=== PATIENT | male | born 1945 | race Caucasian/White ===

== ENCOUNTER 2024-11-06 10:32 | Emergency (ER) | payer OTHER ==
--- OUTSIDE RECORDS SUMMARY | 2024-11-06 10:38 | XMS REPORT | Continuity of Care Document ---
Author Name Unknown Address [address] [facility] [place] [address] [facility] Address [address] [facility] [address] [place] [address] Care Team Providers Care Continuity Writer Name Role Phone Muna Obrien MD Primary Care Physician [phone] MUNA OBRIEN Attending Clinician Unavailable MUNA OBRIEN Attending Clinician Unavailable Muna Obrien MD Attending Clinician [phone] Lab, Segun Ferraro Attending Clinician Unavailable Lavonne Turpin LVN Attending Clinician UnavailDonna Vincent Attending Clinician [phone] NurseSegun Attending Clinician Unavailable Donna Mora Attending Clinician [phone] DONNA BAKER Attending Clinician Unavailable Lab, Segun Ferraro Attending Clinician Unavailable Doctor Unassigned, [place] Attending Clinician U SANDOVAL Burrell Attending Clinician Unavailable Sandoval Umana MD Attending Clinician [phone], [facility] Attending Clinician Unavailable [email or web address] Attending Clinician Unavaila ble Perlita Jarvis DO Attending Clinician [phone] PERLITA JARVIS Attending Clinician Unavailable HALLE VALLE Attending Clinician Unavailable Halle Valle DO Attending Clinician [phone] LEEANN ROWAN Attending Clinician Unavailable De La Garza, Wili Attending Clinician [phone] [phone], Patient Does Not Have A Attending Clinician Lab, Adc Fam Pob I Attending Clinician UnavailDaija Davey Attending Clinician [phone] DAIJA RAYO Attending Clinician Unavailable MUNA OBRIEN Admitting Clinician Unavailable [email or web address] Admitting Clinician UnavailHALLE López Admitting Clinician Unavailable Payers Payer Name Policy Type Policy Number Effective Date Expirati on Date Source [facility] [employer] [place] [id number] 00:00:00 [facility] (MEDICAID REPLACEMENT HMO) [id number] [facility] (MEDICARE REPLACEMENT HMO) [id number] Problems Condition Name Condition Details Condition Category Status Onset Date Resolution Date Last Treatment Date Treating Clinician Comments Source Encounter to establish care Encounter to establish care Disease Active 05-07 00:00: 00 [facility] Mixed hyperlipid emia Mixed hyperlipid emia Disease Active - 00:00: 00 [facility] Encounter to establish care Encounter to establish care Disease Active - 00:00: 00 [facility] Bilateral carotid artery stenosis Bilateral carotid artery stenosis Disease Active 2021-03-15 00:00: 00 [facility] PAF (paroxysma l atrial fibrillati on) PAF (paroxysma l atrial fibrillati on) Disease Active 2021-03 0-24 00:00: 00 [facility] Primary hypertensi on Primary hypertensi on Disease Active 2021-03 0-24 00:00: 00 [facility] Dizziness and giddiness Dizziness and giddiness Disease Active 2021-03 0-24 00:00: 00 [facility] Hyperlipid emia Hyperlipid emia Problem Active 08-16 00:00: 00 [facility] Gout Gout Problem Active 08-16 00:00: 00 [facility] Hypertensi ve disorder Hypertensi ve Disorder Problem Active 08-16 00:00: 00 [facility] No known active problems No known active problems Disease [facility] Allergies, Adverse Reactions, Alerts Allergy Name Allergy Type Status Severity Reaction(s) Onset Date Inactive Date Treating Clinician Comments Source CODEINE DRUG INGREDI Active Med Hallucinates 07-11 00:00: 00 [facility] Codeine Propensi ty to adverse reaction s to drug Active Other - See comments 07-11 00:00: 00 "Feels high" [facility] PENICILL INS Drug Class Active High Anaphylaxis 0 06-26 00:00: 00 [facility] Penicill ins Propensi ty to adverse reaction s Active Anaphylaxis 0 06-26 00:00: 00 [facility] Penicill ins Propensi ty to adverse reaction s Active Anaphylaxis 0 06-26 00:00: 00 [facility] Penicill ins Drug Allergy Active Anaphylaxis 0 17 00:00: 00 [facility] Penicill ins Drug Allergy Active Anaphylaxis 0 06-26 00:00: 00 [facility] Penicill ins Drug Allergy Active Anaphylaxis 0 17 00:00: 00 [facility] PENICILL INS Allergy to substanc e Active [facility] Social History Social Habit Start Date Stop Date Quantity Comments Source Gender identity [facility] Sexual orientation U [facility] History of tobacco use Cigarette Smoker [facility] Alcoholic beverage intake 2024-06-16 00:00:00 2024-06-16 00:00:00 Current drinker of alcohol (finding) [facility] History of Social function 2024-02-12 00:00:00 2024-02-12 00:00:00 [facility] Tobacco use and exposure 2024-02-12 00:00:00 2024-02-12 00:00:00 Smokeless tobacco non-user [facility] Tobacco Comment 2024-02-12 00:00:00 2024-02-12 00:00:00 Smoked 1 ppd for 6 years- quit x50 years ago [facility] Alcohol Comment 2024-02-12 00:00:00 2024-02-12 00:00:00 Occasionally [facility] Exposure to SARS-CoV-2 (event) 2022-02-13 00:00:00 2022-02-23 12:53:00 Not sure [facility] Sex assigned at 1945 00:00:00 1945 00:00:00 [facility] Smoking Status Start Date Stop Date Source Never Smoker [facility] Tobacco smoking consumption unknown [facility] Ex-smoker 2024-02-12 00:00:00 2024-02-12 00:00:00 [facility] Medications Ordered Medication Name Filled Medication Name Start Date Stop Date Current Medication? Ordering Clinician Indication Dosage Frequency Signature (SIG) Comments Components Source metoprolol succinate XL 50 mg 24 hr tablet 10-17 00:00: 00 Yes [id number] 50mg TAKE 1 TABLET BY MOUTH IN THE MORNING [facility] atorvastati n 40 mg tablet 07-28 00:00: 00 Yes [id number] 40mg Take 1 tablet by mouth at bedtime. [facility] ezetimibe 10 mg tablet 07-28 00:00: 00 Yes [id number] 10mg Take 1 tablet by mouth in the morning. [facility] METOPROLOL SUCCINATE XL 50 mg 24 hr tablet 04-24 00:00: 00 10-17 00:00 :00 No [id number] 50mg TAKE 1 TABLET BY MOUTH IN THE MORNING [facility] ketoconazol e 2 % shampoo 2023-03 00:00: 00 Yes [id number] Apply lather to scalp and maki, let it sit for 5 minutes, then rinse off, do this 2-3x weekly for a month or until rash improves [facility] clobetasoL 0.05 % foam 2023-03 00:00: 00 Yes [id number] Apply to area(s) 2 (two) times daily. For 2 weeks [facility] citalopram 10 mg tablet 2023-03 00:00: 00 02-11 00:00 :00 No [id number] 10mg Take 1 tablet by mouth in the morning. [facility] valsartan 320 mg tablet 2023-03 00:00: 00 Yes [id number] 320mg Take 1 tablet by mouth in the morning. [facility] citalopram 10 mg tablet 12-09 00:00: 00 02-04 00:00 :00 No [id number] 10mg Take 1 tablet by mouth in the morning. [facility] valsartan-h ydrochlorot hiazide (DIOVAN HCT) 320-25 mg per tablet 11-21 09:46: 30 11-21 00:00 :00 No 1 tablet Oral Once a day [facility] simvastatin 40 mg tablet 11-21 09:45: 26 11-21 00:00 :00 No 1 tablet in the evening Oral Once a day [facility] glucosamine sulfate (GLUCOSAMIN E ORAL) 11-21 09:45: 24 Yes 1{tbl} Take 1 tablet by mouth in the morning. [facility] atenoloL 25 mg tablet 11-21 09:45: 24 06-16 00:00 :00 No 1 tablet Oral Once a day [facility] SERTraline 25 mg tablet 11-21 00:00: 00 12-09 00:00 :00 No [id number] 25mg Take 1 tablet by mouth in the morning. [facility] METOPROLOL SUCCINATE XL 50 mg 24 hr tablet 8-19 00:00: 00 04-24 21:54 :04 No [id number] 50mg TAKE 1 TABLET BY MOUTH IN THE MORNING [facility] atorvastati n 40 mg tablet 08-06 00:00: 00 06-16 00:00 :00 No [id number] 40mg Take 1 tablet by mouth at bedtime. [facility] ezetimibe 10 mg tablet 08-06 00:00: 00 06-16 00:00 :00 No [id number] 10mg Take 1 tablet by mouth in the morning. [facility] valsartan 320 mg tablet 08-06 00:00: 00 11-21 00:00 :00 No [id number] 320mg Take 1 tablet by mouth in the morning. [facility] metoprolol succinate XL 50 mg 24 hr tablet 2- 15:21: 39 05-07 00:00 :00 No 50mg Take 1 tablet by mouth in the morning. [facility] allopurinoL 300 mg tablet 2-26 15:16: 37 05-07 00:00 :00 No 300mg Take 300 mg by mouth in the morning. [facility] metoprolol succinate XL 50 mg 24 hr tablet 05-07 00:00: 00 10-28 00:00 :00 No [id number] 50mg Take 1 tablet by mouth in the morning. [facility] valsartan 320 mg tablet 2 00:00: 00 08-06 00:00 :00 No [id number] 320mg Take 1 tablet by mouth in the morning. [facility] atorvastati n 80 mg tablet 17 00:00: 00 08-06 00:00 :00 No [id number] 80mg Take 1 tablet by mouth in the morning. [facility] ezetimibe 10 mg tablet -17 00:00: 00 08-06 00:00 :00 No [id number] 10mg Take 1 tablet by mouth in the morning. [facility] atorvastati n 40 mg tablet 8-14 00:00: 00 10-26 00:00 :00 No [id number] 40mg Take 1 tablet by mouth in the morning. [facility] valsartan 320 mg tablet 0 8-11 00:00: 00 05-07 00:00 :00 No [id number] 320mg Take 1 tablet by mouth in the morning. [facility] valsartan 320 mg tablet 6-26 00:00: 00 Yes [id number] 320mg Take 1 tablet by mouth in the morning. [facility] metoprolol succinate XL 50 mg 24 hr tablet 08-24 09:05: 31 Yes 50mg Take 1 tablet by mouth in the morning. [facility] metoprolol succinate XL 50 mg 24 hr tablet 2021-03 13:26: 15 Yes 50mg Take 50 mg by mouth in the morning. [facility] amLODIPine 2.5 mg tablet 2021-03 13:57: 46 01-24 00:00 :00 No 2.5mg Take 2.5 mg by mouth in the morning. [facility] simvastatin 40 mg tablet 2021-03 13:57: 11 01-24 00:00 :00 No 40mg Take 40 mg by mouth every morning. [facility] atorvastati n 40 mg tablet 2021-03 00:00: 00 10-23 00:00 :00 No [id number] 40mg Take 1 tablet by mouth in the morning. [facility] amLODIPine 5 mg tablet 2021-03 00:00: 00 08-24 00:00 :00 No [id number] 5mg Take 1 tablet by mouth in the morning. [facility] valsartan-h ydrochlorot hiazide 320-25 mg per tablet 2021-03 11:15: 29 01-02 00:00 :00 No 1{tbl} Take 1 tablet by mouth in the morning. [facility] allopurinoL 300 mg tablet 2021-03 10:51: 22 Yes 300mg Take 300 mg by mouth in the morning. [facility] amLODIPine 2.5 mg tablet 2021-03 10:51: 22 Yes 2.5mg Take 2.5 mg by mouth in the morning. [facility] metoprolol succinate XL 50 mg 24 hr tablet 2021-03 10:51: 22 Yes 50mg Take 50 mg by mouth in the morning. [facility] simvastatin 40 mg tablet 2021-03 10:51: 22 Yes 40mg Take 40 mg by mouth every morning. [facility] valsartan 320 mg tablet 2022-1 0-24 00:00: 00 09-04 00:00 :00 No [id number] 320mg Take 1 tablet by mouth in the morning. [facility] cloNIDine (CATAPRES) tablet 0.1 mg 2021-03 0 16:15: 00 12-16 16:07 :00 No .1mg 0.1 mg, Oral, ONCE, 1 dose, On Sun12/16/21 at 1115, STAT [facility] NaCl 0.9% (NS) bolus infusion 1,000 mL 2021-03 0 16:15: 00 12-16 18:30 :00 No 1000mL at 999 mL/hr, 1,000 mL, IV Infusion, ONCE, 1 dose, On Sun12/16/21 at 1115, STAT [facility] acetaminoph en-codeine (TYLENOL-CO DEINE #3) 300-30 mg tablet 06-26 00:00: 00 05-07 00:00 :00 No 1{tbl} Take 1 tablet by mouth every 4 (four) hours as needed for Pain (scale 7-10). [facility] ibuprofen 800 mg tablet ibuprofen 800 mg tablet No ibuprofen 800 mg tablet [facility] Medical ID NOW COVID-19 Test Kit TEST DIRECTED TODAY ID NOW COVID-19 Test Kit TEST DIRECTED TODAY No ID NOW COVID-19 Test Kit TEST DIRECTED TODAY [facility] metoprolol succinate ER 100 mg tablet,exte nded release 24 hr TAKE 1 TABLET BY MOUTH EVERY DAY metoprolol succinate ER 100 mg tablet,exte nded release 24 hr TAKE 1 TABLET BY MOUTH EVERY DAY No metoprolol succinate ER 100 mg tablet,ext ended release 24 hr TAKE 1 TABLET BY MOUTH EVERY DAY [facility] metoprolol succinate ER 50 mg tablet,exte nded release 24 hr Take 1 tablet every day by oral route for 30 days. metoprolol succinate ER 50 mg tablet,exte nded release 24 hr Take 1 tablet every day by oral route for 30 days. No 1 Q1D metoprolol succinate ER 50 mg tablet,ext ended release 24 hr Take 1 tablet every day by oral route for 30 days. [facility] naproxen 500 mg tablet TAKE 1 TABLET BY MOUTH TWICE DAILY WITH MEALS NEEDED FOR ARTHRITIS naproxen 500 mg tablet TAKE 1 TABLET BY MOUTH TWICE DAILY WITH MEALS NEEDED FOR ARTHRITIS No naproxen 500 mg tablet TAKE 1 TABLET BY MOUTH TWICE DAILY WITH MEALS NEEDED FOR ARTHRITIS [facility] olmesartan 40 mg-hydrochl orothiazide 25 mg tablet Take 1 tablet every day by oral route in the morning for 90 days. olmesartan 40 mg-hydrochl orothiazide 25 mg tablet Take 1 tablet every day by oral route in the morning for 90 days. No 1 Q1D olmesartan 40 mg-hydroch lorothiazi de 25 mg tablet Take 1 tablet every day by oral route in the morning for 90 days. [facility] Immunizations Ordered Immunization Name Filled Immunization Name Date Status Comments Source Influenza, adjuvanted, trivalent, PF (FLUAD) 2024-02-12 00:00:00 Completed [facility] Influenza Virus Vaccine,quad Im,preserve Free 65+ 2022-01-24 00:00:00 Completed [facility] Influenza Virus Vaccine,quad Im,preserve Free 65+ 2022-01-24 00:00:00 Completed [facility] Influenza Virus Vaccine,quad Im,preserve Free 65+ 2022-01-24 00:00:00 Completed [facility] Influenza Virus Vaccine,quad Im,preserve Free 65+ 2022-01-24 00:00:00 Completed [facility] Influenza Virus Vaccine,quad Im,preserve Free 65+ 2022-01-24 00:00:00 Completed [facility] Influenza Virus Vaccine,quad Im,preserve Free 65+ 2022-01-24 00:00:00 Completed [facility] Influenza Virus Vaccine,quad Im,preserve Free 65+ 2022-01-24 00:00:00 Completed [facility] Influenza Virus Vaccine,quad Im,preserve Free 65+ 2022-01-24 00:00:00 Completed [facility] Influenza Virus Vaccine,quad Im,preserve Free 65+ (FLUAD) 2022-01-24 00:00:00 Completed [facility] Influenza Virus Vaccine,quad Im,preserve Free 65+ (FLUAD) 2022-01-24 00:00:00 Completed [facility] SARS-COV-2 COVID-19 PFIZER VACCINE 2020-04-30 00:00:00 Completed SARS-COV-2 COVID-19 PFIZER VACCINE 2020-04-30 00:00:00 Completed SARS-COV-2 COVID-19 PFIZER VACCINE 2020-04-08 00:00:00 Completed SARS-COV-2 COVID-19 PFIZER VACCINE 2020-04-08 00:00:00 Completed Influenza Virus Vaccine,quad Im,preserve Free 65+ (FLUAD) Unknown Completed [facility] Influenza Virus Vaccine,quad Im,preserve Free 65+ (FLUAD) Unknown Completed [facility] Influenza Virus Vaccine,quad Im,preserve Free 65+ (FLUAD) Unknown Completed [facility] Influenza Virus Vaccine,quad Im,preserve Free 65+ (FLUAD) Unknown Completed [facility] Influenza Virus Vaccine,quad Im,preserve Free 65+ (FLUAD) Unknown Completed [facility] Influenza Virus Vaccine,quad Im,preserve Free 65+ (FLUAD) Unknown Completed [facility] Influenza Virus Vaccine,quad Im,preserve Free 65+ (FLUAD) Unknown Completed [facility] Influenza Virus Vaccine,quad Im,preserve Free 65+ (FLUAD) Unknown Completed [facility] Influenza Virus Vaccine,quad Im,preserve Free 65+ (FLUAD) Unknown Completed [facility] SARS-COV-2 COVID-19 PFIZER VACCINE Unknown Completed [facility] Influenza Virus Vaccine,quad Im,preserve Free 65+ (FLUAD) Unknown Completed [facility] SARS-COV-2 COVID-19 PFIZER VACCINE Unknown Completed [facility] Influenza Virus Vaccine,quad Im,preserve Free 65+ (FLUAD) Unknown Completed [facility] SARS-COV-2 COVID-19 PFIZER VACCINE Unknown Completed [facility] Influenza Virus Vaccine,quad Im,preserve Free 65+ (FLUAD) Unknown Completed [facility] SARS-COV-2 COVID-19 PFIZER VACCINE Unknown Completed [facility] Vital Signs Vital Name Observation Time Observation Value Comments S ource Systolic blood pressure 2024-06-16 15:29:00 194 mm[Hg] [facility] Diastolic blood pressure 2024-06-16 15:29:00 97 mm[Hg] [facility] Heart rate 2024-06-16 14:45:00 58 /min [facility] Body temperature 2024-06-16 14:45:00 36.5 Ammy [facility] Body height 2024-06-16 14:45:00 175.3 cm [facility] Body weight 2024-06-16 14:45:00 71.668 kg [facility] BMI 2024-06-16 14:45:00 23.33 kg/m2 [facility] Oxygen saturation in Arterial blood by Pulse oximetry 2024-06-16 14:45:00 100 /min [facility] Systolic blood pressure 2024-02-12 14:09:00 188 mm[Hg] [facility] Diastolic blood pressure 2024-02-12 14:09:00 82 mm[Hg] [facility] Heart rate 2024-02-12 14:00:00 74 /min [facility] Respiratory rate 2024-02-12 14:00:00 18 /min [facility] Body height 2024-02-12 14:00:00 175.3 cm [facility] Body weight 2024-02-12 14:00:00 67.994 kg [facility] BMI 2024-02-12 14:00:00 22.14 kg/m2 [facility] Oxygen saturation in Arterial blood by Pulse oximetry 2024-02-12 14:00:00 98 /min [facility] Systolic blood pressure 2023-11-22 14:43:00 154 mm[Hg] [facility] Diastolic blood pressure 2023-11-22 14:43:00 73 mm[Hg] [facility] Heart rate 2023-11-22 14:29:00 60 /min [facility] Respiratory rate 2023-11-22 14:29:00 18 /min [facility] Body height 2023-11-22 14:29:00 175.3 cm [facility] Body weight 2023-11-22 14:29:00 69.446 kg [facility] BMI 2023-11-22 14:29:00 22.61 kg/m2 [facility] Oxygen saturation in Arterial blood by Pulse oximetry 2023-11-22 14:29:00 97 /min [facility] Systolic blood pressure 2023-08-07 18:41:00 138 mm[Hg] [facility] Diastolic blood pressure 2023-08-07 18:41:00 70 mm[Hg] [facility] Heart rate 2023-08-07 18:40:00 71 /min [facility] Body temperature 2023-08-07 18:40:00 36.72 Ammy [facility] Respiratory rate 2023-08-07 18:40:00 18 /min [facility] Body height 2023-08-07 18:40:00 172.7 cm [facility] Body weight 2023-08-07 18:40:00 70.308 kg [facility] BMI 2023-08-07 18:40:00 23.57 kg/m2 [facility] Oxygen saturation in Arterial blood by Pulse oximetry 2023-08-07 18:40:00 98 /min [facility] Systolic blood pressure 2023-05-07 20:58:00 138 mm[Hg] [facility] Diastolic blood pressure 2023-05-07 20:58:00 71 mm[Hg] [facility] Heart rate 2023-05-07 20:58:00 69 /min [facility] Body temperature 2023-05-07 20:58:00 36.83 Ammy [facility] Respiratory rate 2023-05-07 20:58:00 18 /min [facility] Body height 2023-05-07 20:58:00 175.3 cm [facility] Body weight 2023-05-07 20:58:00 71.532 kg [facility] BMI 2023-05-07 20:58:00 23.29 kg/m2 [facility] Oxygen saturation in Arterial blood by Pulse oximetry 2023-05-07 20:58:00 98 /min [facility] Systolic blood pressure 2022-08-24 14:09:00 140 mm[Hg] [facility] Diastolic blood pressure 2022-08-24 14:09:00 85 mm[Hg] [facility] Heart rate 2022-08-24 14:09:00 76 /min [facility] Oxygen saturation in Arterial blood by Pulse oximetry 2022-08-24 14:09:00 99 /min [facility] Body temperature 2022-08-24 14:07:00 36.5 Ammy [facility] Respiratory rate 2022-08-24 14:07:00 17 /min [facility] Body height 2022-08-24 14:07:00 175.3 cm [facility] Body weight 2022-08-24 14:07:00 70.806 kg [facility] BMI 2022-08-24 14:07:00 23.05 kg/m2 [facility] Systolic blood pressure 2022-02-23 19:12:00 137 mm[Hg] [facility] Diastolic blood pressure 2022-02-23 19:12:00 75 mm[Hg] [facility] Heart rate 2022-02-23 19:12:00 76 /min [facility] Body temperature 2022-02-23 19:12:00 36.94 Ammy [facility] Respiratory rate 2022-02-23 19:12:00 16 /min [facility] Body weight 2022-02-23 19:12:00 73.086 kg [facility] BMI 2022-02-23 19:12:00 23.79 kg/m2 [facility] Oxygen saturation in Arterial blood by Pulse oximetry 2022-02-23 19:12:00 98 /min [facility] Systolic blood pressure 2022-01-24 19:44:00 171 mm[Hg] taken w pt's bp machine [facility] Diastolic blood pressure 2022-01-24 19:44:00 90 mm[Hg] taken w pt's bp machine [facility] Heart rate 2022-01-24 19:44:00 78 /min [facility] Body temperature 2022-01-24 19:43:00 37.17 Ammy [facility] Respiratory rate 2022-01-24 19:43:00 17 /min [facility] Body weight 2022-01-24 19:43:00 71.487 kg [facility] BMI 2022-01-24 19:43:00 23.27 kg/m2 [facility] Oxygen saturation in Arterial blood by Pulse oximetry 2022-01-24 19:43:00 98 /min [facility] Systolic blood pressure 2022-01-02 15:57:00 156 mm[Hg] [facility] Diastolic blood pressure 2022-01-02 15:57:00 63 mm[Hg] [facility] Heart rate 2022-01-02 15:57:00 47 /min [facility] Respiratory rate 2022-01-02 15:57:00 18 /min [facility] Oxygen saturation in Arterial blood by Pulse oximetry 2022-01-02 15:57:00 98 /min [facility] Body temperature 2022-01-02 15:54:00 36.39 Ammy [facility] Body height 2022-01-02 15:54:00 175.3 cm [facility] Body weight 2022-01-02 15:54:00 70.943 kg [facility] BMI 2022-01-02 15:54:00 23.10 kg/m2 [facility] Systolic blood pressure 2021-12-16 19:00:00 139 mm[Hg] [facility] Diastolic blood pressure 2021-12-16 19:00:00 87 mm[Hg] [facility] Heart rate 2021-12-16 19:00:00 65 /min [facility] Respiratory rate 2021-12-16 19:00:00 15 /min [facility] Oxygen saturation in Arterial blood by Pulse oximetry 2021-12-16 19:00:00 95 /min [facility] Body temperature 2021-12-16 15:53:00 36.44 Ammy [facility] Body height 2021-12-16 15:53:00 175.3 cm [facility] Body weight 2021-12-16 15:53:00 71.215 kg [facility] BMI 2021-12-16 15:53:00 23.18 kg/m2 [facility] BP Diastolic 2021-08-16 00:00:00 76 mm[Hg] [facility] Height 2021-08-16 00:00:00 68 [in_i] [facility] BMI (Body Mass Index) 2021-08-16 00:00:00 24.5 kg/m2 [facility] BP Systolic 2021-08-16 00:00:00 176 mm[Hg] [facility] Body Weight 2021-08-16 00:00:00 2576 [oz_av] [facility] Medical Procedures Procedure Date / Time Performed Performing Clinician Source FLU VACC(),65+YR,0.5 ML,IM,ADJUVANTED,TIV(FLUAD) 2024-02-12 15:00:32 Doctor Unassigned, [place] [facility] CT HEAD WO CONTRAST 2023-12-04 14:18:10 Eri Obrien [facility] ASSIGNMENT OF BENEFITS 2023-05-07 20:43:24 Docto r Unassigned, [place] [facility] PATIENT FINANCIAL POLICY 2022-08-24 13:59:49 Doctor Unassigned, [place] [facility] FLU VACC(),65+YR,0.5 ML,IM,ADJUVANTED,QUAD(FLUAD ) 2022-01-24 19:51:19 Sandoval Umana [facility] CONSENT/REFUSAL FOR DIAGNOSIS AND TREATMENT 2022-01-02 15:30:45 Doctor Unassigned, [place] [facility] URINALYSIS 2021-12-16 17:21:00 [facility] XR CHEST 1 VW 2021-12-16 16:12:12 Raymond [facility] TROPONIN I 2021-12-16 16:03:00 [facility]alle [facility] COMP. METABOLIC PANEL ([id number]) 2021-12-16 16:03:00 Singer Halle [facility] CBC WITH DIFF 2021-12-16 16:03:00 [facility] CONSENT/REFUSAL FOR DIAGNOSIS AND TREATMENT 2021-12-16 15:46:21 Doctor Unassigned, [place] [facility] electrocardiogram 2021-08-16 00:00:00 Nina via Medical Carotid Endarterectomy [facility] T[facility]surgery [facility] Plan of Care Planned Activity Planned Date Details Comments Source Diagnostic Test Pending 2021-08-16 00:00:00 CBC w/ auto diff [code = CBC w/ auto diff] [facility] Diagnostic Test Pending 2021-08-16 00:00:00 CMP, serum or plasma [code = CMP, serum or plasma] [facility] Diagnostic Test Pending 2021-08-16 00:00:00 lipi d panel, serum [code = lipid panel, serum] [facility] Diagnostic Test Pending 2021-08-16 00:00:00 uric acid, serum or plasma [code = uric acid, serum or plasma] [facility] Encounters Start Date/Time End Date/Time Encounter Type Admission Type Attending [facility] Care Department Encounter ID Source 2024-10-16 00:00:00 2024-10-17 15:47:34 [facility] MED[facility] OFF[facility] BUILDING 1..840.114 350.1.13.10 4.2.7.2.686 [id number] [id number] [facility] 2024-08-22 00:00:00 2024-08-25 16:52:09 Telephone Micah [facility] HOLLIS?[facility] MEDICAL OFFICE BUILDING 1..840.114 350.1.13.10 4.2.7.2.686 [id number] 044 [id number] [facility] 2024-07-24 00:00:00 2024-07-25 12:59:29 Refill Micah [facility] HOLLIS?[facility] MEDICAL OFFICE BUILDING 1..840.114 350.1.13.10 4.2.7.2.686 [id number] 044 [id number] [facility] 2024-06-20 00:00:00 2024-06-20 14:50:47 Telephone Micah [facility] HOLLIS?[facility] MEDICAL OFFICE BUILDING 1..840.114 350.1.13.10 4.2.7.2.686 [id number] 044 [id number] [facility] 2024-06-16 10:45:00 2024-06-16 11:00:00 Floor Renovator Visit Lab, Muna Peralta, Segun Ferraro [facility] HOLLIS?[facility] MEDICAL OFFICE BUILDING 1.840.114 350.1.13.10 4.2.7.2.686 [id number] [facility] 2024-06-16 10:45:00 2024-06-16 10:45:00 Outpatient R MUNA OBRIEN [facility] [id number] [facility] 2024-06-16 09:40:00 2024-06-16 10:37:11 Office Visit Muna Obrien [facility] HOLLIS?[facility] MEDICAL OFFICE BUILDING 1.2840.114 350.1.13.10 4.2.7.2.686 [id number] 044 [id number] [facility] 2023-11-19 00:00:00 2024-04-26 07:00:34 Orders Only Lavonne Turpin, Lavonne [facility] [place]LLIS?[facility] MEDICAL OFFICE BUILDING 1.20.114 350.1.13.10 4.2.7.2.686 [id number] [facility] 2024-04-19 00:00:00 2024-04-24 15:54:06 [facility] BUILDING 1.2840.114 350.1.13.10 4.2.7.2.686 [id number] [id number] [facility] 2024-02-14 00:00:00 2024-02-14 10:26:37 Letter (Out) [facility] (TONIE) 1.20.114 350.1.13.10 4.2.7.2.686 [id number] [facility] 2024-02-12 09:40:00 2024-02-12 10:00:00 Imm/Inj Visit Nurse, Muna Johnson Nurse, Segun Ferraro [facility] HOLLIS?[facility] MEDICAL OFFICE BUILDING 1.2840.114 350.1.13.10 4.2.7.2.686 [id number] 044 [id number] [facility] 2024-02-12 09:40:00 2024-02-12 09:40:00 Outpatient R HAO OBRIENINE MICAH [facility] [id number] [facility] 2024-02-12 08:20:00 2024-02-12 08:40:05 Office Visit Micah [facility] MEDICAL OFFICE BUILDING 1.2.840.114 350.1.13.10 4.2.7.2.686 [id number] [id number] [facility] 2024-02-05 00:00:00 2024-02-05 13:03:28 [facility] MEDICAL OFF[facility] BUILDING 1.2.840.114 350.1.13.10 4.2.7.2.686 [id number] 044 [id number] [facility] 2024-01-11 00:00:00 2024-01-11 11:48:36 Letter (Out) [facility] (TONIE) 1.2.840.114 350.1.13.10 4.2.7.2.686 [id number] [id number] [facility] 2024-01-09 00:00:00 2024-01-09 11:59:10 [facility]phone [facility] MEDICAL OFFICE BUILDING 1.2.840.114 350.1.13.10 4.2.7.2.686 [id number] 044 [id number] [facility] 2023-12-07 00:00:00 2023-12-10 13:20:39 Telephone [facility] MEDICAL OFFICE BUILDING 1.2.840.114 350.1.13.10 4.2.7.2.686 [id number] [facility] 2023-12-04 08:57:36 2023-12-04 23:59:00 Outpatient R MUNA OBRIEN [facility] [id number] [facility] 2023-12-04 08:57:36 2023-12-04 23:59:00 Hospital Encounter Muna Obrien [facility] 1.2840.114 350.1.13.10 4.2.7.2.686 [id number] [facility] 2023-11-23 00:00:00 2023-11-23 10:35:55 Telephone Micah M[facility] MEDICAL OFFICE BUILDING 1.84.114 350.1.13.10 4.2.7.2.686 [id number] 044 [id number] [facility] 2023-11-22 10:45:00 2023-11-22 10:45:00 Floor Renovator Visit Lab, Segun - Muna Hayes Lab, Ang - Ronan [facility] MEDICAL OFFICE BUILDING 1.84.114 350.1.13.10 4.2.7.2.686 [id number] [facility] 2023-11-22 09:40:00 2023-11-22 10:31:14 Outpatient R MUNA OBRIEN [facility] [id number] [facility] 2023-11-22 09:40:00 2023-11-22 10:31:14 Office Visit Micah [facility] MEDICAL OFFICE BUILDING 1.284.114 350.1.13.10 4.2.7.2.686 [id number] [facility] 2023-10-28 00:00:00 2023-10-29 14:41:26 Refill Donna Baker [facility] MEDICAL OFFICE BUILDING 1.2840.114 350.1.13.10 4.2.7.2.686 [id number] [facility] 2023-09-20 09:00:00 2023-09-20 09:00:00 Outpatient R [facility] [id number] [facility] 2023-09-17 00:00:00 2023-09-17 10:25:43 Letter (Out) [facility] 1.2.840.114 350.1.13.10 4.2.7.2.686 [id number] [facility] 2023-08-29 00:00:00 2023-08-30 11:10:25 Telephone [facility] MEDICAL OFFICE BUILDING 1.2.840.114 350.1.13.10 4.2.7.2.686 [id number] 044 [id number] [facility] 2023-08-07 13:40:00 2023-08-07 14:08:00 Office Visit [facility]ALEJAGriselda [facility] MEDICAL OFF[facility] BUILDING 1.2.840.114 350.1.13.10 4.2.7.2.686 [id number] 044 [id number] [facility] 2023-08-07 13:40:00 2023-08-07 14:08:00 Outpatient R MUNA OBRIEN [facility] [id number] [facility] 2023-05-15 00:00:00 2023-05-15 00:00:00 Telephone [facility] MED[facility] OFF[facility] BUILD[facility] 1.2.840.114 350.1.13.10 4.2.7.2.686 [id number] [facility] 2023-05-14 10:00:00 2023-05-14 11:06:14 Outpatient R DONNA BAKER [facility] [id number] [facility] 2023-05-14 10:00:00 2023-05-14 10:15:00 Floor Renovator Visit Lab, Donna Koenig [facility] 1.840.114 350.1.13.10 4.2.7.2.686 [id number] [facility] 2023-05-07 15:00:00 2023-05-07 15:23:22 Outpatient R DONNA BAKER [facility] [id number] [facility] 2023-05-07 15:00:00 2023-05-07 15:23:22 Office Visit Donna Baker [facility] HOLLIS?BI[facility]CA [facility] MEDICAL OFF[facility] BUILDING 1.840.114 350.1.13.10 4.2.7.2.686 [id number] [id number] [facility] 2023-05-07 00:00:00 2023-05-07 00:00:00 Orders Only Doctor Unassigned, [place] [facility] 1.84.114 350.1.13.10 4.2.7.2.686 [id number] [facility] 2022-10-26 00:00:00 2022-10-26 00:00:00 [facility] 1.840.114 350.1.13.10 4.2.7.2.686 [id number] [facility] 2022-10-24 08:15:00 2022-10-24 08:35:01 [facility] [id number] [facility] 2022-10-24 08:15:00 2022-10-24 08:30:00 Floor Renovator Visit 2, Adc [facility] 1.840.114 350.1.13.10 4.2.7.2.686 [id number] [facility] 2022-10-20 00:00:00 2022-10-20 00:00:00 [facility] 1.2.840.114 350.1.13.10 4.2.7.2.686 [id number] [facility] 2022-09-04 00:00:00 2022-09-04 00:00:00 [facility] 1.2.840.114 350.1.13.10 4.2.7.2.686 [id number] [facility] 2022-08-24 09:20:00 2022-08-24 09:28:55 [facility] 1.2.840.114 350.1.13.10 4.2.7.2.686 [id number] [facility] 2022-08-24 09:20:00 2022-08-24 09:20:00 Outpatient [facility] [id number] [facility] 2022-08-24 00:00:00 2022-08-24 00:00:00 Orders Only Doctor Unassigned, [place] [facility] 1.2.840.114 350.1.13.10 4.2.7.2.686 [id number] [facility] 2022-02-23 13:00:00 2022-02-23 13:35:08 Outpatient [facility] [id number] [facility] 2022-02-23 13:00:00 2022-02-23 13:35:08 [facility] 1.2.840.114 350.1.13.10 4.2.7.2.686 [id number] [facility] 2022-01-24 13:40:00 2022-01-24 14:02:58 Office [facility] Dong[facility] BU[facility] 1.840.114 350.1.13.10 4.2.7.2.686 [id number] [facility] 2022-01-24 13:40:00 2022-01-24 14:02:58 Outpatient [facility] [id number] [facility] 2022-01-19 00:00:00 2022-01-19 00:00:00 [facility] 1.840.114 350.1.13.10 4.2.7.2.686 [id number] [facility] 2022-01-16 08:53:46 2022-01-16 23:59:00 Outpatient [facility] [id number] [facility] 2022-01-04 00:00:00 2022-01-04 00:00:00 Telephone Dong [facility] BUILDING 1.840.114 350.1.13.10 4.2.7.2.686 [id number] [facility] 2022-01-02 10:40:00 2022-01-02 11:20:56 Outpatient R [facility] [id number] [facility] 2022-01-02 10:40:00 2022-01-02 11:20:56 Office [facility] BUILDING 1.840.114 350.1.13.10 4.2.7.2.686 [id number] [facility] 2022-01-02 00:00:00 2022-01-02 00:00:00 Orders Only Doctor Unassigned, [place] [facility] 1.2840.114 350.1.13.10 4.2.7.2.686 [id number] [facility] 2021-12-29 10:00:00 2021-12-29 10:15:00 Floor Renovator Visit 2, Adc Lab Perlita Jarvis [facility] 1.840.114 350.1.13.10 4.2.7.2.686 [id number] [facility] 2021-12-29 10:00:00 2021-12-29 10:00:00 Outpatient PERLITA LIMA [facility] [id number] [facility] 2021-12-16 10:55:00 2021-12-16 14:18:00 Emergency X SINGER HALLE [facility] ERT [id number] [facility] 2021-12-16 10:55:00 2021-12-16 14:18:00 Emergency ValleHalle [facility] 1.840.114 350.1.13.10 4.2.7.2.686 [id number] [facility] 2021-10-23 19:36:00 2021-10-23 19:36:00 Emergency X LEEANN ROWAN [facility] ERT [id number] [facility] 2021-08-16 00:00:00 2021-08-16 00:00:00 Wili De La Garza, [employer] SPECIALIST: [address] [place] [address] , Ph. [facility] - GC_[id number] nzalez [facility] Office [id number] [facility] 2021-08-16 00:00:00 2021-08-16 00:00:00 Outpatient Frederic Wili [facility] [id number] 2020-01-29 00:00:00 2020-01-29 00:00:00 Telephone Pcp, Patient Does Not Have A [facility] 1.840.114 350.1.13.10 4.2.7.2.686 [id number] [facility] 2020-01-24 16:30:13 2020-01-24 16:50:13 Laboratory Only Lab, Adc Fam Pob Daija Rodriguez [facility] Office [address] 1.2.840.114 350.1.13.10 4.2.7.2.686 [id number] [facility] 2020-01-24 16:20:00 2020-01-24 16:48:36 Outpatient R DAIJA RAYO [facility] [id number] [facility] Results Test Description Test Time Test Comments Results Resul t Comments Source CT HEAD WO CONTRAST 2023-11-12 4 16:09:53 EXAM: CT HEAD WO CONTRAST HISTORY: Memory loss TECHNIQUE: Axial CT of the head was performed and reconstructed at 5 mmintervals. Coronal and sagittal reformatted images were generated. COMPARISON: None FINDINGS: The ventricles and cerebral sulci are within normal limits for patient'kimberley. No hydrocephalus. No midline shift or pathological extra-axial fluidcollection is present. The basal cisterns are unremarkable. No acute intracranial hemorrhage or significant mass effect is visualized.Periventr icular and deep white matter hypodensities, nonspecific finding,likely reflect chronic microvascular ischemic changes. Right basal gangliachronic lacunar infarcts. The marina-white matter differentiation ispreserved. The mastoid air cells and paranasal air sinuses are clear. The calvariumand central skull base are unremarkable. [facility] ([id number])2021-12-16 16:33:30* Test Item Value Reference Range Interpretation Comme nts NA (test code = 0661171785) 138 mmol/L 135-145 K (test code = 9500190794) 4.7 mmol/L 3.5-5 CL (test code = 5675707076) 98 mmol/L 98-108 CO2 TOTAL (test code = 9890983648) 26 mmol/L 23-31 AGAP (test code = 7614910360) 2-16 BUN (test code = 9149505225) 24 mg/dL 7-23 H GLUCOSE (test code = 8002081310) 110 mg/dL 70-110 CREATININE (test code = 8168540603) 1.37 mg/dL 0.6-1.25 H TOTAL BILI (test code = 4316633550) 0.8 mg/dL 0.1-1.1 CALCIUM (test code = 8426759274) 10.3 mg/dL 8.6-10.6 T PROTEIN (test code = 8563830000) 7.4 g/dL 6.3-8.2 ALBUMIN (test code = 0353828829) 4.8 g/dL 3.5-5 ALK PHOS (test code = 9290730137) 58 U/L 34-122 ALTv (test code = 1742-6) 21 U/L 5-50 AST(SGOT) (test code = 0041759190) 24 U/L 13-40 eGFR (test code = 3094791375) mL/min/1.73m2 SINAN (test code = SINAN) Association of Glomerular Filtration Rate (GFR) and Staging of Kidney Disease* + --+ --+ ------+| GFR (mL/min/1.73 m2) ?| With Kidney Damage ?| ?Without Kidney Damage+ --------+ --------+ +| ?>90 ?| ?Stage one ?| ? Normal ?+ ---+ ---+ -------+| ?60-89 ?| ?Stage two ?| ? Decreased GFR ? + --+ --+ ------+| ?30-59 ?| ?Stage three ?| ? Stage three ? + --+ --+ ------+| ?15-29 ?| ?Stage four ? | ? Stage four ?+ ---+ ---+ -------+| ?<15 (or dialysis) ? ?| ?Stage five ? | ? Stage five ?+ ---+ ---+ -------+ *Each stage assumes the associated GFR level has been in effect for at least three months. ?Stages 1 to 5, with or without kidney disease, indicate chronic kidney disease. Notes: Determination of stages one and two (with eGFR >59mL/min/1.73 m2) requires estimation of kidney damage for at least three months as defined by structural or functional abnormalities of the kidney, manifested by either:Pathological abnormalities or Markers of kidney damage (including abnormalities in the composition of the blood or urine or abnormalities in imaging tests). Lab Interpretation (test code = 45728-0) Abnormal [facility] WITH [id number] 16:16:08* Test Item Value Reference Range Interpretation Comme nts WBC (test code = 6690-2) See_Comment [Automated messa ge] The system which generated this result transmitted reference range: 4.20 - 10.70 10*3/?L. The reference range was not used to interpret this result as normal/abnormal. RBC (test code = 789-8) See_Comment [Automated messa ge] The system which generated this result transmitted reference range: 4.26 - 5.52 10*6/?L. The reference range was not used to interpret this result as normal/abnormal. HGB (test code = 718-7) 14.9 g/dL 12.2-16.4 HCT (test code = 4544-3) 42.8 % 38.4-49.3 MCV (test code = 787-2) 84.8 fL 81.7-95.6 MCH (test code = 785-6) 29.5 pg 26.1-32.7 MCHC (test code = 786-4) 34.8 g/dL 31.2-35 RDW-SD (test code = 30386-8) 38.2 fL 38.5-51.6 L RDW-CV (test code = 788-0) 12.5 % 12.1-15.4 PLT (test code = 777-3) See_Comment [Automated messa ge] The system which generated this result transmitted reference range: 150 - 328 10*3/?L. The reference range was not used to interpret this result as normal/abnormal. MPV (test code = 03454-9) 9.9 fL 9.8-13 NRBC/100 WBC (test code = 8215094480) See_Comment [Automated [employer] ssage] The system which generated this result transmitted reference range: 0.0 - 10.0 /100 WBCs. The reference range was not used to interpret this result as normal/abnormal. NRBC x10^3 (test code = 7484444848) See_Comment [Automated messa ge] The system which generated this result transmitted reference range: 10*3/?L. The reference range was not used to interpret this result as normal/abnormal. GRAN MAT (NEUT) % (test code = 770-8) 56.8 % IMM GRAN % (test code = 9670583752) 0.40 % LYMPH % (test code = 736-9) 31.3 % MONO % (test code = 5905-5) 8.8 % EOS % (test code = 713-8) 1.9 % BASO % (test code = 706-2) 0.8 % GRAN MAT x10^3(ANC) (test code = 2711591884) 4.13 10*3/uL 1.99-6.95 IMM GRAN x10^3 (test code = 8301246722) 0.03 10*3/uL 0-0.06 LYMPH x10^3 (test code = 731-0) 2.28 10*3/uL 1.09-3.23 MONO x10^3 (test code = 742-7) 0.64 10*3/uL 0.36-1.02 EOS x10^3 (test code = 711-2) 0.14 10*3/uL 0.06-0.53 BASO x10^3 (test code = 704-7) 0.06 10*3/uL 0.01-0.09 Lab Interpretation (test code = 93272-2) Abnormal [facility] Notes Date/Time Note Provider Source 2024-10-17 15:46:37 Last Refilled: METOPROLOL SUCCINATE XL 50 mg 24 hr tablet 90 tablet 1 04/24/2024 -- No Sig: TAKE 1 TABLET BY MOUTH IN THE MORNING Sent to pharmacy as: metoprolol succinate ER 50 mg tablet,extended release 24 hr (TOPROL XL) Class: eRX Route: Oral Order: [id number] Date/Time Signed: 04/24/2024 15:54 E-Prescribing Status: Receipt confirmed by pharmacy (04/24/2024 3:54 PM [facility]) Recent Visits Date Type Provider Dept 06/16/24 Office Visit Muna Obrien MD Ang[facility] 02/12/24 Office Visit Muna Obrien MD [facility] 11/22/23 Office Visit Muna Obrien MD [facility] 08/07/23 Office Visit Muna Obrien MD [facility] 05/07/23 Office Visit Donna Baker FNP [facility] Showing recent visits within past 540 days with a meds authorizing provider and meeting all other requirements Future Appointments No visits were found meeting these conditions. Showing future appointments within next 150 days with a meds authorizing provider and meeting all other requirements Darlyn Talley [facility] 2024-08-25 16:52:03 Done [facility] 2024-08-23 13:56:28 Please review, complete, and sign if appropriate. [facility] 2024-08-22 16:15:27 Tonie Love is a 79 year old male Patient is requesting a referral to: Dept: Ophthalmology Reason for referral: macular degeneration f/u External referral: Name of provider / location patient requesting: [facility] [address] [facility] Phone number: [phone] Appt already scheduled?: y If yes, date of appt.: 08.26.24 Micaela Lockett [facility] 2024-06-20 14:43:06 Notified patient of test results/recommendations per and gave verbal understanding. Hello, Urinalysis Your urinalysis is complete and within normal limits. This is an indicator of proper kidney function, and does not show an infection. Chemistry Panel Your electrolytes (sodium, potassium, calcium, glucose) are were within normal ranges. Your kidney function were within normal reference ranges. Your liver enzymes (AST and ALT) are within normal reference ranges. Alkaline phosphatase were within normal reference ranges. These are enzymes typically found in the gallbladder/liver/bone area. Other labs are acceptable. Dr. Micah Phillips Written by Muna Obrien MD on 06/18/2024 10:12 PM CDT Echo Calvo MA [facility] 2024-06-20 14:15:16 Tonie Love is a 79 year old male The patient is requesting a call with his test results. He said he got a text that they were on MyChart but he does not use MyChart. Cristina Cotton [facility] 2024-06-16 10:45:00 Images from the original note were not included. Venipuncture collection performed by clean technique on the left anticubitus. Total of 1 attempts were made. Slight pressure and a bandage/dressing were applied to the site(s). The patient experienced no complications. The following specimens were processed according to instructions and sent to [facility] laboratories per lab order on 06/16/2024 : LT BLUE SST 1 RED LAV 2 PPT DK GREEN (LiHep) DK GREEN (SodH) MARINA DK BLUE (K2) DK BLUE (S) ACD Blood Culture NIPT/NTD Patient has been identified by and name and was provided with cup, antiseptic towelette, and clean catch instructions. 1 urine specimen(s) sent. Unpreserved 1 Urine Culture Aptima tube Other urine [facility] 2024-04-24 09:43:08 Patient denied use of Atenolol and only taking Metoprolol and Valsartan at this time. SMITH [facility] 2024-04-22 17:24:30 Is he taking atenolol as well? Please clarify which betablocker he is taking. Dr. Micah Phillips [facility] 2024-04-21 14:54:23 Images from the original note were not included. Notes: 10/29/23 Last Refilled: [facility] #[id number] - [facility] [address] AT [facility] & Recent Visits Date Type Provider Dept 02/12/24 Office Visit Muna Obrien MD [facility] 11/22/23 Office Visit Muna Obrien MD [facility] 08/07/23 Office Visit Muna Obrien MD [facility] 05/07/23 Office Visit Donna Baker FNP [facility] Showing recent visits within past 540 days with a meds authorizing provider and meeting all other requirements Future Appointments Date Type Provider Dept 06/16/24 Appointment Muna Obrien MD [facility] Showing future appointments within next 150 days with a meds authorizing provider and meeting all other requirements Name from pharmacy: METOPROLOL ER SUCCINATE 50MG TABS Will file in chart as: METOPROLOL SUCCINATE XL 50 mg 24 hr tablet Sig: TAKE 1 TABLET BY MOUTH IN THE MORNING Disp: 90 tablet Refills: 1 (Pharmacy requested: Not specified) Start: 04/19/2024 Class: eRX For: Primary hypertension Last ordered: 5 months ago (10/29/2023) by KRZYSZTOF Hinkle Last refill: 01/23/2024 Rx #: [id number]|0|1 Cardiovascular: Beta Blockers Eznpoq1504/19/2024 08:26 AM Protocol Details Valid encounter within last 12 months Heart rate within normal limits and completed in the last 12 months To be filled at: [facility] #[id number] [facility], [place] - [address] AT [place] [id number] & [address] Ashley Peralta MA [facility] 2024-02-05 13:02:25 Images from the original note were not included. Notes: MUST BE SEEN FOR FURTHER REFILLS Last Refilled: Name from pharmacy: [facility] 10MG TABLETS Will file in chart as: [facility] 10 mg tablet Sig: Take 1 tablet by mouth in the morning. Original sig: TAKE 1 TABLET BY MOUTH IN THE MORNING Disp: 60 tablet Refills: 0 (Pharmacy requested: Not specified) Start: 02/05/2024 Class: eRX For: Depression, unspecified depression type Last ordered: 1 month ago (12/10/2023) by Muna Obrien MD Last refill: 12/10/2023 Rx #: [id number]|0|1 Psychiatry: Antidepressants [id number]/05/2024 08:21 AM Protocol Details Manual Review: Verify no changes in dose in the last 3 months Valid encounter within last 12 months To be filled at: [facility] #[id number] [place] [address] [facility] [address] Recent Visits Date Type Provider Dept 11/22/23 Office Visit Muna Obrien MD [facility] 08/07/23 Office Visit Muna Obrien MD [facility] 05/07/23 Office Visit Donna Baker FNP [facility] Showing recent visits within past 540 days with a meds authorizing provider and meeting all other requirements Future Appointments Date Type Provider Dept 02/12/24 Appointment Muna Obrien MD [facility] Showing future appointments within next 150 days with a meds authorizing provider and meeting all other requirements SMITH Echo Calvo MA [facility] 2024-01-09 11:53:47 Referral placed for [facility]. And faxed. P:[phone] F:[phone] [facility] 2024-01-09 11:06:20 Tonie Love is a 78 year old male is requesting assistance with finding field sales associate in [place] so that he may have an eye exam for glasses Please advise [phone] (home) T [facility] 2023-12-10 13:20:14 Patient notified of all and verbalized understanding. No further needs were voiced. [facility] 2023-12-10 12:35:53 That is a rare side effect. Stop sertraline. We can try a different medicine called citalopram. Let us know if he has any side effects. Best, Dr. Obrien T [facility] 2023-12-07 11:10:45 Please review and advise. MANUEL 11/22/23 NOV 02/12/24 [facility] 2023-12-07 10:42:05 Tonie Love is a 78 year old male Pt saw the doctor on 11/21 and was prescribed sertraline 25 mg. He said it took it for 7 days and had "bad diarrhea". He stopped it on 11/30 and took it again this morning and within 2 hours he had diarrhea again. Please call [phone]. [facility] 2023-11-23 10:34:54 Spoke with patient and informed him that the labs had not been resulted on as of yet. He would receive a call when they had. He voiced understanding. Mila Alfonso RN [facility] 2023-11-23 09:48:04 Tonie Love is a 78 year old male would like to go over his recent lab results with a nurse. Please advise. [facility] 2023-11-22 10:45:00 Images from the original note were not included. Venipuncture collection performed by clean technique on the left anticubitus. Total of 1 attempts were made. Slight pressure and a bandage/dressing were applied to the site(s). The patient experienced no complications. The following specimens were processed according to instructions and sent to [facility] laboratories per lab order on 11/22/2023 : LT BLUE SST 2 RED LAV 1 PPT DK GREEN (LiHep) DK GREEN (SodH) MARINA DK BLUE (K2) DK BLUE (S) ACD Blood Culture NIPT/NTD Patient has been identified by and name and was provided with cup, antiseptic towelette, and clean catch instructions. 1 urine specimen(s) sent. Unpreserved 1 Urine Culture Aptima tube Other urine [facility] 2023-10-29 14:40:21 Last Refilled: Disp Refills Start End SACHI metoprolol succinate XL 50 mg 24 hr tablet 90 tablet 1 05/07/2023 -- No Sig: Take 1 tablet by mouth in the morning. Sent to pharmacy as: metoprolol succinate ER 50 mg tablet,extended release 24 hr (TOPROL XL) Class: eRX Route: Oral Order: [id number] Date/Time Signed: 05/07/2023 15:21 E-Prescribing Status: Receipt confirmed by pharmacy (05/07/2023 4:36 PM [facility]) Notes: Recent Visits Date Type Provider Dept 08/07/23 Office Visit Muna Obrien MD [facility] 05/07/23 Office Visit Donna Baker FNP [facility] Showing recent visits within past 540 days with a meds authorizing provider and meeting all other requirements Future Appointments Date Type Provider Dept 11/22/23 Appointment Muna Obrien MD [facility] Showing future appointments within next 150 days with a meds authorizing provider and meeting all other requirements Floor [facility]ator Visit on 05/14/2023 Component Date Value NA 05/14/2023 141 K 05/14/2023 4.6 CL 05/14/2023 109 (H) CO2 TOTAL 05/14/2023 24 AGAP 05/14/2023 8 BUN 05/14/2023 32 (H) GLUCOSE 05/14/2023 100 CREATININE 05/14/2023 1.17 TOTAL BILI 05/14/2023 0.7 CALCIUM 05/14/2023 9.8 T PROTEIN 05/14/2023 7.0 ALBUMIN 05/14/2023 4.2 ALK PHOS 05/14/2023 67 ALTv 05/14/2023 23 AST(SGOT) 05/14/2023 31 eGFR 05/14/2023 63.4 HGB A1C 05/14/2023 5.9 (H) CHOL 05/14/2023 119 (L) HDL 05/14/2023 34 (L) HDLC RATIO 05/14/2023 3.5 TRIG 05/14/2023 74 LDL CHOL 05/14/2023 70 VLDL 05/14/2023 15 TSH 05/14/2023 2.80 Office Visit on 05/07/2023 Component Date Value WBC 05/14/2023 9.60 RBC 05/14/2023 5.09 HGB 05/14/2023 15.3 HCT 05/14/2023 46.3 MCV 05/14/2023 91.0 MCH 05/14/2023 30.1 MCHC 05/14/2023 33.0 RDW-SD 05/14/2023 41.8 RDW-CV 05/14/2023 12.9 PLT 05/14/2023 200 MPV 05/14/2023 11.9 IPF % 05/14/2023 7.3 NRBC/100 WBC 05/14/2023 0.0 NRBC x10 3 05/14/2023 <0.01 GRAN MAT (NEUT) % 05/14/2023 53.6 IMM GRAN % 05/14/2023 0.40 LYMPH % 05/14/2023 31.0 MONO % 05/14/2023 8.2 EOS % 05/14/2023 6.0 BASO % 05/14/2023 0.8 GRAN MAT x10 3 (ANC) 05/14/2023 5.13 IMM GRAN x10 3 05/14/2023 0.04 LYMPH x10 3 05/14/2023 2.98 MONO x10 3 05/14/2023 0.79 EOS x10 3 05/14/2023 0.58 (H) BASO x10 3 05/14/2023 0.08 Mila Alfonso RN [facility] 2023-08-30 11:09:54 Referral placed per provider approval . T [facility] 2023-08-29 21:57:36 I approve a referral. Dr Esvin gibbons in [facility] is good. Best, Dr. Obrien T [facility] 2023-08-29 10:25:58 Copied from [facility] #[id number]. Topic: Clinical - Referral >> Aug 29, 2023 10:23 AM Patient Performance Improvement Analyst wrote: Tonie Love is a 78 year old male Patient requesting a referral to a Primary Special Education Teacher for a skin check asking if Dr. Obrien can recommend someone to him. Please advise and call patient with an update. [phone] (home) [facility] 2023-05-16 10:56:27 Patient has been notified of test results/ recommendations per Donna Baker Gave verbal understanding [facility] 2023-05-15 15:33:48 Copied from [facility] #[id number]. Topic: Clinical - Results >> May 15, 2023 3:32 PM Patient Performance Improvement Analyst wrote: Patient called stating that he had a missed call for his results and would like a call back on those results Please advise [facility] 2023-05-14 10:00:00 Images from the original note were not included. Venipuncture collection performed by clean technique on the left anticubitus. Total of 1 attempts were made. Slight pressure and a bandage/dressing were applied to the site(s). The patient experienced no complications. The following specimens were processed according to instructions and sent to [facility] laboratories per lab order on 05/14/2023 : LT BLUE SST 1 RED LAV 1 PPT DK GREEN (LiHep) DK GREEN (SodH) MARINA DK BLUE (K2) DK BLUE (S) ACD Blood Culture NIPT/NTD [facility] 2022-10-26 08:53:48 Formatting of this n ote might be different from the original. Images from the original note were not included. Results shred with patient, verbalized understanding Sandoval Umana MD P Cardiology Nurse Labs are good for refills. Renal function has improved. Cholesterol is still suboptimal. Increase Lipitor to 80 mg daily and also add Zetia 10 mg daily. [facility] 2022-10-24 08:15:00 Formatting of this n ote is different from the original. Images from the original note were not included. Venipuncture collection performed by clean technique on the left anticubitus. Total of 1 attempts were made. Slight pressure and a bandage/dressing were applied to the site(s). The patient experienced no complications. The following specimens were processed according to instructions and sent to [facility] laboratories per lab order on 10/24/2022 : LT BLUE SST 1 RED LAV 1 PPT DK GREEN (LiHep) DK GREEN (SodH) MARINA DK BLUE (K2) DK BLUE (S) ACD Blood Culture NIPT/NTD [facility] 2022-10-23 08:58:15 Formatting of this n ote might be different from the original. Images from the original note were not included. Refill request received for atorvastatin. Patient due for labs per [facility] Cardiology Refill Guidelines. Orders were entered on 10.20.22 for lipid panel, CMP, CBC and Hepatic function. Discussed with patient that we can send 30 day supply for continuity of care but he will need to get labs for further refills. He verbalized understanding via teach back. Rx sent to: [facility] #[id number] [place] [address] [address] [facility] [address] T Olamide Naranjo RN [facility] 2022-10-20 14:01:10 Addended by: TREVER VELIZ RN on: 10/20/2022 02:01 PM Modules accepted: Orders T [facility] 2022-10-20 13:52:42 Formatting of this n ote might be different from the original. Valsartan refill sent for 90 days no refills for continuity of care. Lab orders placed, LVM on VM to call clinic with concerns MANUEL 08/24/22 Labs 12/16/21 [facility]
[2024-11-06 11:40] LABS: Absolute Lymphocytes (CBC) 1.9 K/uL (0.7-4.9); Hematocrit 46.5 % (39.6-49.0); Hemoglobin 15.7 g/dL (13.6-17.9); MCH 28.9 pg (27.0-35.0); MCHC 33.7 g/dL (32.0-36.0); MCV 85.9 fL (80-100); MPV 8.3 fL (7.6-11.3); Nucleated RBC Absolute Count 0.0 (0-0); Nucleated Red Blood Cells % 0.0 % (0-0); RBC Red Blood Cell Count 5.42 M/uL (4.33-5.43); White Blood Count 8.90 thou/uL (4.3-10.9)
[2024-11-06 11:43] LABS: Sqamous Epithelial None Seen /HPF (None Seen); Urine Culture Reflex Order NOT NEEDED; Urine Microscopic Reflex YN ORDER UMIC
[2024-11-06 11:45] LABS: PT Prothrombin Time 11.8 SECONDS (10-13.0); Protime INR 1.05
[2024-11-06 12:00] LABS: ALT/SGPT 35.0 U/L (16-61); AST/SGOT 18.0 U/L (15-37); Albumin 3.9 g/dL (3.4-5.0); Albumin/Globulin Ratio 1.1 (1.1-1.8); Alkaline Phosphatase 83.0 U/L (45-117); Anion Gap 9.8 mEq/L (5.0-15.0); BUN Blood Urea Nitrogen 19.0 mg/dL (7-18); Bilirubin Indirect, Calculated 0.5 mg/dL (0.2-0.8); Globulin 3.5 g/dL (2.3-3.5); Glucose Level 98.0 mg/dL (74-106); Magnesium 2.1 mg/dL (1.6-2.4); NT PRO-BNP 366.0 pg/mL (<450); Potassium 3.8 mEq/L (3.5-5.1); Troponin High Sensitivity 7.6 pg/mL (<58.9)
--- NOTE | 2024-11-06 12:17 | RAD REPORT ---
EXAMINATION: ONE VIEW CHEST XR CLINICAL INDICATION: Male, 79 years old.,COUGH TECHNIQUE: Frontal chest projection is submitted. Examination is limited by patient positioning and t echnique. COMPARISON: No prior exam. FINDINGS: The lungs are well inflated and clear. No pneumothorax or sizable effusion. The heart is normal in s ize. Mediastinal contours are unremarkable. IMPRESSION: No acute intrathoracic abnormalities.
--- NOTE | 2024-11-06 12:30 | ER ---
Nurse's Notes [facility] Name: Abraham Patel Age: 79 yrs Sex: Male : 1945 Arrival Date: 11/06/2024 Time: 10:32 Bed 24 Private MD: Diagnosis: Essential (primary) hypertension Presentation: 11/06 11:12 Chief complaint: Patient states: took bp at home this morning and it was 200s/100s, me1 took his Valsartan 320mg and in an hour bp was still high. took another 1/2 dose of valsartan and waited. BP went up to 228/108 so patient came to ER. Denies LAWSON and chest pain. Coronavirus screen: Vaccine status: Patient reports receiving the 2nd dose of the covid vaccine. Ebola Screen: No symptoms or risks identified at this time. Initial Sepsis Screen: Does the patient meet any 2 criteria? No. Patient's initial sepsis screen is negative. Does the patient have a suspected source of infection? No. Patient's initial sepsis screen is negative. Risk Assessment: Do you want to hurt yourself or someone else? Patient reports no desire to harm self or others. Onset of symptoms was November 06, 2024 at 06:00. 11:12 Method Of Arrival: Ambulatory [facility] 11:12 Acuity: BYRON 4 me1 Historical: - Allergies: 11:14 PENICILLINS; me1 - PMHx: 11:14 Hypertensive disorder; Hypercholesterolemia; me1 - PSHx: 11:14 Appendectomy; Tonsillectomy; Operative procedure on knee; me1 - Immunization history:: Adult Immunizations up to date. - Infectious Disease History:: Denies. - Social history:: Smoking status: Patient denies any tobacco usage or history of. Screenin:40 [facility] ED Fall Risk Assessment (Adult) History of falling in the last 3 months, jb4 including since admission No falls in past 3 months (0 pts) Confusion or Disorientation No (0 pts) Intoxicated or Sedated No (0 pts) Impaired Gait No (0 pts) Mobility Assist Device Used No (0 pt) Altered Elimination No (0 pt) Score/Fall Risk Level 0 - 2 = Low Risk Oriented to surroundings, Maintained a safe environment. Abuse screen: Denies threats or abuse. Nutritional screening: No deficits noted. Tuberculosis screening: No symptoms or risk factors identified. Assessment: 12:49 General: Appears in no apparent distress. comfortable, Behavior is calm, cooperative, jb4 appropriate for age. Pain: Denies pain. Neuro: Level of Consciousness is awake, alert, obeys commands, Oriented to person, place, time, situation. Cardiovascular: Patient's skin is warm and dry. Rhythm is sinus rhythm. Respiratory: Airway is patent Respiratory effort is even, unlabored, Respiratory pattern is regular, symmetrical. Derm: Skin is intact, Skin is pink, warm \T\ dry. Musculoskeletal: Circulation, motion, and sensation intact. Range of motion: intact in all extremities. Vital Signs: 11:12 BP 186 / 94; Pulse 80; Resp 18; Temp 98.4; Pulse Ox 98% ; Weight 65.77 kg; Height 5 ft. me1 9 in. ; Pain 0/10; 12:40 BP 176 / 84; Pulse 65; Resp 16; Pulse Ox 98% on R/A; jb4 11:12 Body Mass Index 21.41 (65.77 kg, 175.26 cm) or1 11:12 Pain Scale: Adult [facility] ED Course: 10:36 Patient arrived in ED. mr 10:38 Lucas Perez MD is Attending Physician. nereida 11:14 Triage completed. or1 11:14 Arm band placed on Patient placed in waiting room. or1 11:28 XRAY Chest (1 view) In Process Unspecified. EDMS 11:31 UA Rfx [place] Cult if indicated Sent. bc6 11:32 Basic Metabolic Panel Sent. bc6 11:32 CBC with Diff Sent. bc6 11:32 LFT's Sent. bc6 11:32 Magnesium Sent. bc6 11:32 NT PRO-BNP Sent. bc6 11:32 PT-INR Sent. bc6 11:32 Troponin HS Sent. bc6 11:32 Initial lab(s) drawn, by or, sent to lab. Urine collected: clean catch specimen, clear. bc6 Inserted saline lock: 20 gauge in right antecubital area, using aseptic technique. Blood collected. Flushed with 10 mL NS. 12:29 Sal Cody, LORETO is Primary Nurse. jb4 12:29 Jeffrey Grajeda MD is Referral Physician. nereida 12:40 Patient has correct armband on for positive identification. Bed in low position. Call jb4 light in reach. Side rails up X 1. Provided Education on: discharge instructions.. 12:40 No provider procedures requiring assistance completed. IV discontinued, intact, jb4 bleeding controlled, No redness/swelling at site. Pressure dressing applied. Administered Medications: 12:30 Not Given (Physician Discretion): ns 0.9% 500 ml 500 ml IV at 1 bolus once; to be given jb4 as a bolus over 30 minutes 12:40 Drug: Norvasc PO 10 mg PO once Route: PO; jb4 12:49 Follow up: Response: Medication administered at discharge. jb4 Medication: 12:49 VIS not applicable for this client. jb4 Outcome: 12:30 Discharge ordered by . nereida 12:52 Discharged to home ambulatory, jb4 12:52 Condition: stable 12:52 Discharge instructions given to patient, Instructed on discharge instructions, follow up and referral plans. medication usage, Demonstrated understanding of instructions, follow-up care, medications, Prescriptions given X 1, 12:52 Patient left the ED. jb4 Signatures: Dispatcher [employer] EDMS Lucas Perez MD MD cha Rivera, Mary, Reg Reg Sal Guerra, RN RN jb4 Kami Bauer 6 Myra Nicole, RN RN me1
--- NOTE | 2024-11-06 12:30 | EDPHYS ---
Physician Documentation [facility] Name: Abraham Patel Age: 79 yrs Sex: Male : 1945 Arrival Date: 11/06/2024 Time: 10:32 Bed 24 Private MD: ED Physician Lucas Perez HPI: 11/06 12:23 This 79 yrs old Male presents to ER via Ambulatory with complaints of High nereida Blood Pressure. 12:23 The patient has elevated blood pressure and discovered this at home, with a home nereida device. Onset: The symptoms/episode began/occurred today, yesterday. Modifying factors: The symptoms are aggravated by activity, The symptoms are alleviated by remaining still. Associated signs and symptoms: The patient has no apparent associated signs or symptoms. Severity of symptoms: At its worst the blood pressure was mild, moderate, in the emergency department the blood pressure is unchanged. Historical: - Allergies: 11:14 PENICILLINS; me1 - PMHx: 11:14 Hypertensive disorder; Hypercholesterolemia; me1 - PSHx: 11:14 Appendectomy; Tonsillectomy; Operative procedure on knee; me1 - Immunization history:: Adult Immunizations up to date. - Infectious Disease History:: Denies. - Social history:: Smoking status: Patient denies any tobacco usage or history of. ROS: 12:24 Constitutional: Negative for fever, chills, and weight loss, Eyes: Negative for injury, nereida pain, redness, and discharge, ENT: Negative for injury, pain, and discharge, Neck: Negative for injury, pain, and swelling, Cardiovascular: Negative for chest pain, palpitations, and edema, Respiratory: Negative for shortness of breath, cough, wheezing, and pleuritic chest pain, Abdomen/GI: Negative for abdominal pain, nausea, vomiting, diarrhea, and constipation, Back: Negative for injury and pain, : Negative for injury, bleeding, discharge, and swelling, MS/Extremity: Negative for injury and deformity, Skin: Negative for injury, rash, and discoloration, Neuro: Negative for headache, weakness, numbness, tingling, and seizure, Psych: Negative for depression, anxiety, suicide ideation, homicidal ideation, and hallucinations, Allergy/Immunology: Negative for hives, rash, and allergies, Endocrine: Negative for neck swelling, polydipsia, polyuria, polyphagia, and marked weight changes, Hematologic/Lymphatic: Negative for swollen nodes, abnormal bleeding, and unusual bruising, 12:24 MS/extremity: Negative for acute changes, Exam: 12:24 Constitutional: This is a well developed, well nourished patient who is awake, alert, nereida and in no acute distress. Head/Face: Normocephalic, atraumatic. Eyes: Pupils equal round and reactive to light, extra-ocular motions intact. Lids and lashes normal. Conjunctiva and sclera are non-icteric and not injected. Cornea within normal limits. Periorbital areas with no swelling, redness, or edema. ENT: Nares patent. No nasal discharge, no septal abnormalities noted. Tympanic membranes are normal and external auditory canals are clear. Oropharynx with no redness, swelling, or masses, exudates, or evidence of obstruction, uvula midline. Mucous membranes moist. Neck: Trachea midline, no thyromegaly or masses palpated, and no cervical lymphadenopathy. Supple, full range of motion without nuchal rigidity, or vertebral point tenderness. No Meningismus. Chest/axilla: Normal chest wall appearance and motion. Nontender with no deformity. No lesions are appreciated. Cardiovascular: Regular rate and rhythm with a normal S1 and S2. No gallops, murmurs, or rubs. Normal PMI, no JVD. No pulse deficits. Respiratory: Lungs have equal breath sounds bilaterally, clear to auscultation and percussion. No rales, rhonchi or wheezes noted. No increased work of breathing, no retractions or nasal flaring. Abdomen/GI: Soft, non-tender, with normal bowel sounds. No distension or tympany. No guarding or rebound. No evidence of tenderness throughout. Back: No spinal tenderness. No costovertebral tenderness. Full range of motion. Male : Normal genitalia with no discharge or lesions. Skin: Warm, dry with normal turgor. Normal color with no rashes, no lesions, and no evidence of cellulitis. MS/ Extremity: Pulses equal, no cyanosis. Neurovascular intact. Full, normal range of motion., bilateral aka Neuro: Awake and alert, GCS 15, oriented to person, place, time, and situation. Cranial nerves II-XII grossly intact. Motor strength 5/5 in all extremities. Sensory grossly intact. Cerebellar exam normal. Normal gait. Psych: Awake, alert, with orientation to person, place and time. Behavior, mood, and affect are within normal limits. 12:24 ECG was reviewed by the Attending Physician. 12:24 Musculoskeletal/extremity: ROM: no acute changes, intact in all extremities, full active range of motion, full passive range of motion, Circulation is intact in all extremities. Sensation intact. Compartment Syndrome exam of affected extremity: is normal. no pain, no numbness, no tingling, no sensation deficit, no palor, no weak pulses, DVT Exam: No signs of deep vein thrombosis. no pain, no swelling, no tenderness, negative Homans' sign noted on exam, no appreciated bluish discoloration, no erythema, no increased warmth, 12:28 ECG was reviewed by the Attending Physician. [facility] Vital Signs: 11:12 BP 186 / 94; Pulse 80; Resp 18; Temp 98.4; Pulse Ox 98% ; Weight 65.77 kg; Height 5 ft. me1 9 in. ; Pain 0/10; 12:40 BP 176 / 84; Pulse 65; Resp 16; Pulse Ox 98% on R/A; jb4 11:12 Body Mass Index 21.41 (65.77 kg, 175.26 cm) me1 11:12 Pain Scale: Adult me1 MDM: 11:36 Medical Screening Exam initiated [facility] 12:26 Differential diagnosis: hypertensive crisis, Malignant HTN. Data reviewed: vital signs, [facility] nurses notes, lab test result(s), EKG, radiologic studies, CT scan, plain films. Consideration of Admission/Observation Escalation of care including admission/observation considered. I considered the following discharge prescriptions or medication management in the emergency department Medications were administered in the Emergency Department. See MAR. Independent interpretation of the following test(s) in the Emergency Department EKG: See my EKG interpretation above. Test considered but Not performed: Ultrasound NO 2 D ECHO. Historians other than the Patient: Spouse/Significant Other: WELL INFORMED. Care significantly affected by the following chronic conditions: Hypertension. Counseling: I had a detailed discussion with the patient and/or guardian regarding the historical points, exam findings, and any diagnostic results supporting the discharge/admit diagnosis, lab results, radiology results, the need for outpatient follow up, for definitive care, a chemical production technician, a family practitioner. 11/06 10:39 Order name: Basic Metabolic Panel; Complete Time: 12:20 [facility] 11/06 10:39 Order name: CBC with Diff; Complete Time: 12:20 [facility] 11/06 10:39 Order name: LFT's; Complete Time: 12:20 [facility] 11/06 10:39 Order name: Magnesium; Complete Time: 12:20 [facility] 11/06 10:39 Order name: NT PRO-BNP; Complete Time: 12:20 [facility] 11/06 10:39 Order name: PT-INR; Complete Time: 12:20 [facility] 11/06 10:39 Order name: Troponin HS; Complete Time: 12:20 [facility] 11/06 10:39 Order name: UA Rfx [place] Cult if indicated; Complete Time: 12:20 [facility] 11/06 10:39 Order name: XRAY Chest (1 view); Complete Time: 12:20 [facility] 11/06 10:39 Order name: Cardiac monitoring; Complete Time: 12:49 [facility] 11/06 10:39 Order name: EKG - Nurse/Tech; Complete Time: 12:49 [facility] 11/06 10:39 Order name: IV Saline Lock; Complete Time: 11:31 [facility] 11/06 10:39 Order name: Labs collected and sent; Complete Time: 11:32 [facility] 11/06 10:39 Order name: O2 Per Protocol; Complete Time: 12:29 [facility] 11/06 10:39 Order name: O2 Sat Monitoring; Complete Time: 12:29 [facility] EC:28 Rate is 80 beats/min. Rhythm is regular. QRS [place] is Normal. TN interval is normal. QRS nereida interval is normal. QT interval is normal. No Q waves. T waves are Normal. No ST changes noted. Clinical impression: NSR w/ Non-specific ST/T Changes and No evidence of ischemia. Interpreted by me. Reviewed by me. Administered Medications: 12:30 Not Given (Physician Discretion): ns 0.9% 500 ml 500 ml IV at 1 bolus once; to be given jb4 as a bolus over 30 minutes 12:40 Drug: Norvasc PO 10 mg PO once Route: PO; jb4 12:49 Follow up: Response: Medication administered at discharge. jb4 Disposition Summary: 11/06/24 12:30 Discharge Ordered Notes: Location: Home nereida Problem: new nereida Symptoms: have improved nereida Condition: Stable nereida Diagnosis - Essential (primary) hypertension nereida Followup: nereida - With: Private Physician - When: 2 - 3 days - Reason: Recheck today's complaints, Continuance of care, Re-evaluation by your physician Followup: nereida - With: Jeffrey Grajeda MD - When: 2 - 3 days - Reason: Recheck today's complaints, Re-evaluation by your physician Discharge Instructions: - Discharge Summary Sheet nereida - Hypertension, Adult nereida - Hypertension, Adult, [id number]-[id number] nereida - How to Take Your Blood Pressure, [id number] nereida - Aspirin and Your Heart nereida - Managing Your Hypertension nereida Forms: - Medication Reconciliation Form nereida - Antibiotic Education nereida - Prescription Opioid Use nereida - Patient Portal Instructions nereida - Leadership Thank You Letter [facility] Prescriptions: - Norvasc 5 mg Oral Tablet - take 1 tablet ORAL route once daily; 20 tablet; Refills: 0, Product Selection nereida Permitted Signatures: Dispatcher [employer] EDLucas Mares MD MD cha Bryson, James, RN RN jb4 Myra Nicole RN RN me1 Corrections: (The following items were deleted from the chart) 10:40 10:40 BASIC METABOLIC PANEL+C.LAB.BRZ ordered. EDMS EDMS 10:40 10:40 CBC+H.LAB.BRZ ordered. EDMS EDMS 10:40 10:40 HEPATIC FUNCTION+C.LAB.BRZ ordered. EDMS EDMS 10:40 10:40 MAGNESIUM+C.LAB.BRZ ordered. EDMS EDMS 10:40 10:40 PROBNP+C.LAB.BRZ ordered. EDMS EDMS 10:40 10:40 PROTIME (+INR)+COAG.LAB.BRZ ordered. EDMS EDMS 10:40 10:40 Troponin High Sensitivity+C.LAB.BRZ ordered. EDMS EDMS 10:40 10:40 UA Rfx [place] Cult if indicated+U.LAB.BRZ ordered. EDMS EDMS 10:40 10:40 Chest Single View+RAD.RAD.BRZ ordered. EDMS EDMS
[2024-11-06] MEDS ORDERED: AMLODIPINE 10 MG TAB ONE (12:31)
[2024-11-06 19:58] VITALS: BP 176/84; O2SAT 98
== END 2024-11-06 12:52 | disposition home or self-care (01) ==
LOC: ER 10:32
DX: I10 Essential (primary) hypertension (principal)
CPT/HCPCS: 36415; 71045; 80048; 80076; 81001; 83735; 83880; 84484; 85025; 85610; 93005; 99284

== ENCOUNTER 2024-12-10 15:48 | Emergency (ER) | payer OTHER ==
--- OUTSIDE RECORDS SUMMARY | 2024-12-10 15:52 | XMS REPORT | Continuity of Care Document ---
Author Name Unknown Address [address] [facility]. [address] [place] [address] [facility] Address [address] [facility] [place] [address] Care Team Providers Care Arbitrator Name Role Phone Muna Obrien MD Primary Care Physician [phone] MUNA OBRIEN Attending Clinician Unavailable MUNA OBRIEN Attending Clinician Unavailable Muna Obrien MD Attending Clinician [phone] Lab, Segun Ferraro Attending Clinician Unavailable Lavonne Turpin LVN Attending Clinician UnavailDonna Vincent Attending Clinician [phone] Segun Jovel Attending Clinician Unavailable Donna Mora Attending Clinician [phone] DONNA BAKER Attending Clinician Unavailable Lab, Segun Ferraro Attending Clinician Unavailable Doctor Unassigned, Hunker Attending Clinician U navailable SANDOVAL UMANA Attending Clinician Unavailable Sandoval Umana MD Attending Clinician [phone], [facility] Attending Clinician Unavailable [email or web address] Attending Clinician Unavaila ble Perlita Jarvis DO Attending Clinician [phone] PERLITA JARVIS Attending Clinician Unavailable HALLE VALLE Attending Clinician Unavailable Halle Valle DO Attending Clinician [phone] LEEANN ROWAN Attending Clinician Unavailable Wili De La Garza Attending Clinician [phone] [phone], Patient Does Not Have A Attending Clinician Lab, Adc Fam Pob I Attending Clinician UnavailDaija Davey Attending Clinician [phone] DAIJA RAYO Attending Clinician Unavailable MUNA OBRIEN Admitting Clinician Unavailable [email or web address] Admitting Clinician Unavaila HALLE Metz Admitting Clinician Unavailable Payers Payer Name Policy Type Policy Number Effective Date Expirati on Date Source [facility] [id number] 00:00:00 [facility] (MEDICAID REPLACEMENT HMO) [id number] [facility] - [facility] (MEDICARE REPLACEMENT HMO) [id number] Problems Condition Name Condition Details Condition Category Status Onset Date Resolution Date Last Treatment Date Treating Clinician Comments Source Encounter to establish care Encounter to establish care Disease Active 05-07 00:00: 00 [facility] Mixed hyperlipid emia Mixed hyperlipid emia Disease Active - 00:00: 00 [facility] Encounter to establish care Encounter to establish care Disease Active - 00:00: 00 [facility] Bilateral carotid artery stenosis Bilateral carotid artery stenosis Disease Active 2021-03-15 00:00: 00 [facility] PAF (paroxysma l atrial fibrillati on) PAF (paroxysma l atrial fibrillati on) Disease Active 2021-03 0- 00:00: 00 [facility] Primary hypertensi on Primary hypertensi on Disease Active 2021-03 0-24 00:00: 00 [facility] Dizziness and giddiness Dizziness and giddiness Disease Active 2021-03 0-24 00:00: 00 [facility] Hyperlipid emia Hyperlipid emia Problem Active 08-16 00:00: 00 [facility] Gout Gout Problem Active 08-16 00:00: 00 [facility] Hypertensi ve disorder Hypertensi ve Disorder Problem Active 08-16 00:00: 00 [facility] No known active problems No known active problems Disease [facility] Allergies, Adverse Reactions, Alerts Allergy Name Allergy Type Status Severity Reaction(s) Onset Date Inactive Date Treating Clinician Comments Source CODEINE DRUG INGREDI Active Med Hallucinates 07-11 00:00: 00 [facility] Codeine Propensi ty to adverse reaction s to drug Active Other - See comments 07-11 00:00: 00 "Feels high" [facility] PENICILL INS Drug Class Active High Anaphylaxis 06-26 00:00: 00 [facility] Penicill ins Propensi ty to adverse reaction s Active Anaphylaxis 06-26 00:00: 00 [facility] Penicill ins Propensi ty to adverse reaction s Active Anaphylaxis 06-26 00:00: 00 [facility] Penicill ins Drug Allergy Active Anaphylaxis 0 06-26 00:00: 00 [facility] Penicill ins Drug Allergy Active Anaphylaxis 0 06-26 00:00: 00 [facility] Penicill ins Drug Allergy Active Anaphylaxis 0 06-26 00:00: 00 [facility] PENICILL INS Allergy to substanc e Active [facility] Social History Social Habit Start Date Stop Date Quantity Comments Source Gender identity [facility] Sexual orientation [facility] History of tobacco use Cigarette Smoker [facility] Alcoholic beverage intake 2024-06-16 00:00:00 2024-06-16 00:00:00 Current drinker of alcohol (finding) [facility] History of Social function 2024-02-12 00:00:00 2024-02-12 00:00:00 [facility] Tobacco use and exposure 2024-02-12 00:00:00 2024-02-12 00:00:00 Smokeless tobacco non-user [facility] Tobacco Comment 2024-02-12 00:00:00 2024-02-12 00:00:00 Smoked 1 ppd for 6 years- quit x50 years ago [facility] Alcohol Comment 2024-02-12 00:00:00 2024-02-12 00:00:00 Occasionally [facility] Exposure to SARS-CoV-2 (event) 2022-02-13 00:00:00 2022-02-23 12:53:00 Not sure [facility] Sex assigned at 1945 00:00:00 1945 00:00:00 [facility] Smoking Status Start Date Stop Date Source Never Smoker [facility] Tobacco smoking consumption unknown [facility] Ex-smoker 2024-02-12 00:00:00 2024-02-12 00:00:00 [facility] Medications Ordered Medication Name Filled Medication Name Start Date Stop Date Current Medication? Ordering Clinician Indication Dosage Frequency Signature (SIG) Comments Components Source metoprolol succinate XL 50 mg 24 hr tablet 10-17 00:00: 00 Yes [id number] 50mg TAKE 1 TABLET BY MOUTH IN THE MORNING [facility] atorvastati n 40 mg tablet 07-28 00:00: 00 Yes [id number] 40mg Take 1 tablet by mouth at bedtime. [facility] ezetimibe 10 mg tablet 07-28 00:00: 00 Yes [id number] 10mg Take 1 tablet by mouth in the morning. [facility] METOPROLOL SUCCINATE XL 50 mg 24 hr tablet 04-24 00:00: 00 10-17 00:00 :00 No [id number] 50mg TAKE 1 TABLET BY MOUTH IN THE MORNING [facility] ketoconazol e 2 % shampoo 2023-03 00:00: 00 Yes [id number] Apply lather to scalp and maki, let it sit for 5 minutes, then rinse off, do this 2-3x weekly for a month or until rash improves [facility] clobetasoL 0.05 % foam 2023-03 00:00: 00 Yes [id number] Apply to area(s) 2 (two) times daily. For 2 weeks [facility] citalopram 10 mg tablet 2023-03 00:00: 00 02-11 00:00 :00 No [id number] 10mg Take 1 tablet by mouth in the morning. [facility] valsartan 320 mg tablet 2023-03 0 00:00: 00 Yes [id number] 320mg Take 1 tablet by mouth in the morning. [facility] citalopram 10 mg tablet 12-09 00:00: 00 02-04 00:00 :00 No [id number] 10mg Take 1 tablet by mouth in the morning. [facility] valsartan-h ydrochlorot hiazide (DIOVAN HCT) 320-25 mg per tablet 11-21 09:46: 30 11-21 00:00 :00 No 1 tablet Oral Once a day [facility] simvastatin 40 mg tablet 11-21 09:45: 26 11-21 00:00 :00 No 1 tablet in the evening Oral Once a day [facility] glucosamine sulfate (GLUCOSAMIN E ORAL) 11-21 09:45: 24 Yes 1{tbl} Take 1 tablet by mouth in the morning. [facility] atenoloL 25 mg tablet 11-21 09:45: 24 06-16 00:00 :00 No 1 tablet Oral Once a day [facility] SERTraline 25 mg tablet 11-21 00:00: 00 12-09 00:00 :00 No [id number] 25mg Take 1 tablet by mouth in the morning. [facility] METOPROLOL SUCCINATE XL 50 mg 24 hr tablet 19 00:00: 00 04-24 21:54 :04 No [id number] 50mg TAKE 1 TABLET BY MOUTH IN THE MORNING [facility] atorvastati n 40 mg tablet 08-06 00:00: 00 06-16 00:00 :00 No [id number] 40mg Take 1 tablet by mouth at bedtime. [facility] ezetimibe 10 mg tablet 08-06 00:00: 00 06-16 00:00 :00 No [id number] 10mg Take 1 tablet by mouth in the morning. [facility] valsartan 320 mg tablet 08-06 00:00: 00 11-21 00:00 :00 No [id number] 320mg Take 1 tablet by mouth in the morning. [facility] metoprolol succinate XL 50 mg 24 hr tablet 2-26 15:21: 39 05-07 00:00 :00 No 50mg Take 1 tablet by mouth in the morning. [facility] allopurinoL 300 mg tablet 2-26 15:16: 37 05-07 00:00 :00 No 300mg Take 300 mg by mouth in the morning. [facility] metoprolol succinate XL 50 mg 24 hr tablet 2- 00:00: 00 10-28 00:00 :00 No [id number] 50mg Take 1 tablet by mouth in the morning. [facility] valsartan 320 mg tablet 2 00:00: 00 08-06 00:00 :00 No [id number] 320mg Take 1 tablet by mouth in the morning. [facility] atorvastati n 80 mg tablet 0 8-17 00:00: 00 08-06 00:00 :00 No [id number] 80mg Take 1 tablet by mouth in the morning. [facility] ezetimibe 10 mg tablet 0 8-17 00:00: 00 08-06 00:00 :00 No [id number] 10mg Take 1 tablet by mouth in the morning. [facility] atorvastati n 40 mg tablet 0 8-14 00:00: 00 10-26 00:00 :00 No [id number] 40mg Take 1 tablet by mouth in the morning. [facility] valsartan 320 mg tablet 2022-0 8-11 00:00: 00 05-07 00:00 :00 No [id number] 320mg Take 1 tablet by mouth in the morning. [facility] valsartan 320 mg tablet 2022-0 6-26 00:00: 00 Yes [id number] 320mg Take 1 tablet by mouth in the morning. [facility] metoprolol succinate XL 50 mg 24 hr tablet 08-24 09:05: 31 Yes 50mg Take 1 tablet by mouth in the morning. [facility] metoprolol succinate XL 50 mg 24 hr tablet 2021-03 13:26: 15 Yes 50mg Take 50 mg by mouth in the morning. [facility] amLODIPine 2.5 mg tablet 2021-03 13:57: 46 01-24 00:00 :00 No 2.5mg Take 2.5 mg by mouth in the morning. [facility] simvastatin 40 mg tablet 2021-03 13:57: 11 01-24 00:00 :00 No 40mg Take 40 mg by mouth every morning. [facility] atorvastati n 40 mg tablet 2021-03 00:00: 00 10-23 00:00 :00 No [id number] 40mg Take 1 tablet by mouth in the morning. [facility] amLODIPine 5 mg tablet 2021-03 00:00: 00 08-24 00:00 :00 No [id number] 5mg Take 1 tablet by mouth in the morning. [facility] valsartan-h ydrochlorot hiazide 320-25 mg per tablet 2021-03 11:15: 29 01-02 00:00 :00 No 1{tbl} Take 1 tablet by mouth in the morning. [facility] allopurinoL 300 mg tablet 2021-03 10:51: 22 Yes 300mg Take 300 mg by mouth in the morning. [facility] amLODIPine 2.5 mg tablet 2021-03 10:51: 22 Yes 2.5mg Take 2.5 mg by mouth in the morning. [facility] metoprolol succinate XL 50 mg 24 hr tablet 2021-03 10:51: 22 Yes 50mg Take 50 mg by mouth in the morning. [facility] simvastatin 40 mg tablet 2021-0324 10:51: 22 Yes 40mg Take 40 mg by mouth every morning. [facility] valsartan 320 mg tablet 2021-03 024 00:00: 00 09-04 00:00 :00 No [id number] 320mg Take 1 tablet by mouth in the morning. [facility] cloNIDine (CATAPRES) tablet 0.1 mg 2021-03 0 16:15: 00 12-16 16:07 :00 No .1mg 0.1 mg, Oral, ONCE, 1 dose, On Sun12/16/21 at 1115, STAT [facility] NaCl 0.9% (NS) bolus infusion 1,000 mL 2021-03 0 16:15: 00 12-16 18:30 :00 No 1000mL at 999 mL/hr, 1,000 mL, IV Infusion, ONCE, 1 dose, On Sun12/16/21 at 1115, STAT [facility] acetaminoph en-codeine (TYLENOL-CO DEINE #3) 300-30 mg tablet 17 00:00: 00 05-07 00:00 :00 No 1{tbl} Take 1 tablet by mouth every 4 (four) hours as needed for Pain (scale 7-10). [facility] ibuprofen 800 mg tablet ibuprofen 800 mg tablet No ibuprofen 800 mg tablet [facility] Medical ID NOW COVID-19 Test Kit TEST DIRECTED TODAY ID NOW COVID-19 Test Kit TEST DIRECTED TODAY No ID NOW COVID-19 Test Kit TEST DIRECTED TODAY [facility] metoprolol succinate ER 100 mg tablet,exte nded release 24 hr TAKE 1 TABLET BY MOUTH EVERY DAY metoprolol succinate ER 100 mg tablet,exte nded release 24 hr TAKE 1 TABLET BY MOUTH EVERY DAY No metoprolol succinate ER 100 mg tablet,ext ended release 24 hr TAKE 1 TABLET BY MOUTH EVERY DAY [facility] metoprolol succinate ER 50 mg tablet,exte [...] day by oral route for 30 days. [facility] naproxen 500 mg tablet TAKE 1 TABLET BY MOUTH TWICE DAILY WITH MEALS NEEDED FOR ARTHRITIS naproxen 500 mg tablet TAKE 1 TABLET BY MOUTH TWICE DAILY WITH MEALS NEEDED FOR ARTHRITIS No naproxen 500 mg tablet TAKE 1 TABLET BY MOUTH TWICE DAILY WITH MEALS NEEDED FOR ARTHRITIS [facility] olmesartan 40 mg-hydrochl orothiazide 25 mg tablet [...] route in the morning for 90 days. [facility] Immunizations Ordered Immunization Name Filled Immunization Name Date Status Comments Source Influenza, adjuvanted, trivalent, PF (FLUAD) 2024-02-12 00:00:00 Completed [facility] Influenza Virus Vaccine,quad Im,preserve Free 65+ 2022-01-24 00:00:00 Completed [facility] Influenza Virus Vaccine,quad Im,preserve Free 65+ 2022-01-24 00:00:00 Completed [facility] Influenza Virus Vaccine,quad Im,preserve Free 65+ 2022-01-24 00:00:00 Completed [facility] Influenza Virus Vaccine,quad Im,preserve Free 65+ 2022-01-24 00:00:00 Completed [facility] Influenza Virus Vaccine,quad Im,preserve Free 65+ 2022-01-24 00:00:00 Completed [facility] Influenza Virus Vaccine,quad Im,preserve Free 65+ 2022-01-24 00:00:00 Completed [facility] Influenza Virus Vaccine,quad Im,preserve Free 65+ 2022-01-24 00:00:00 Completed [facility] Influenza Virus Vaccine,quad Im,preserve Free 65+ 2022-01-24 00:00:00 Completed [facility] Influenza Virus Vaccine,quad Im,preserve Free 65+ (FLUAD) 2022-01-24 00:00:00 Completed [facility] Influenza Virus Vaccine,quad Im,preserve Free 65+ (FLUAD) 2022-01-24 00:00:00 Completed [facility] SARS-COV-2 COVID-19 PFIZER VACCINE 2020-04-30 00:00:00 Completed SARS-COV-2 COVID-19 PFIZER VACCINE 2020-04-30 00:00:00 Completed SARS-COV-2 COVID-19 PFIZER VACCINE 2020-04-08 00:00:00 Completed SARS-COV-2 COVID-19 PFIZER VACCINE 2020-04-08 00:00:00 Completed Influenza Virus Vaccine,quad Im,preserve Free 65+ (FLUAD) Unknown Completed [facility] Influenza Virus Vaccine,quad Im,preserve Free 65+ (FLUAD) Unknown Completed [facility] Influenza Virus Vaccine,quad Im,preserve Free 65+ (FLUAD) Unknown Completed [facility] Influenza Virus Vaccine,quad Im,preserve Free 65+ (FLUAD) Unknown Completed [facility] Influenza Virus Vaccine,quad Im,preserve Free 65+ (FLUAD) Unknown Completed [facility] Influenza Virus Vaccine,quad Im,preserve Free 65+ (FLUAD) Unknown Completed [facility] Influenza Virus Vaccine,quad Im,preserve Free 65+ (FLUAD) Unknown Completed [facility] Influenza Virus Vaccine,quad Im,preserve Free 65+ (FLUAD) Unknown Completed [facility] Influenza Virus Vaccine,quad Im,preserve Free 65+ (FLUAD) Unknown Completed [facility] SARS-COV-2 COVID-19 PFIZER VACCINE Unknown Completed [facility] Influenza Virus Vaccine,quad Im,preserve Free 65+ (FLUAD) Unknown Completed [facility] SARS-COV-2 COVID-19 PFIZER VACCINE Unknown Completed [facility] Influenza Virus Vaccine,quad Im,preserve Free 65+ (FLUAD) Unknown Completed [facility] SARS-COV-2 COVID-19 PFIZER VACCINE Unknown Completed [facility] Influenza Virus Vaccine,quad Im,preserve Free 65+ (FLUAD) Unknown Completed [facility] SARS-COV-2 COVID-19 PFIZER VACCINE Unknown Completed [facility] Vital Signs Vital Name Observation Time Observation Value Comments S ource Systolic blood pressure 2024-06-16 15:29:00 194 mm[Hg] [facility] Diastolic blood pressure 2024-06-16 15:29:00 97 mm[Hg] [facility] Heart rate 2024-06-16 14:45:00 58 /min [facility] Body temperature 2024-06-16 14:45:00 36.5 Ammy [facility] Body height 2024-06-16 14:45:00 175.3 cm [facility] Body weight 2024-06-16 14:45:00 71.668 kg [facility] BMI 2024-06-16 14:45:00 23.33 kg/m2 [facility] Oxygen saturation in Arterial blood by Pulse oximetry 2024-06-16 14:45:00 100 /min [facility] Systolic blood pressure 2024-02-12 14:09:00 188 mm[Hg] [facility] Diastolic blood pressure 2024-02-12 14:09:00 82 mm[Hg] [facility] Heart rate 2024-02-12 14:00:00 74 /min [facility] Respiratory rate 2024-02-12 14:00:00 18 /min [facility] Body height 2024-02-12 14:00:00 175.3 cm [facility] Body weight 2024-02-12 14:00:00 67.994 kg [facility] BMI 2024-02-12 14:00:00 22.14 kg/m2 [facility] Oxygen saturation in Arterial blood by Pulse oximetry 2024-02-12 14:00:00 98 /min [facility] Systolic blood pressure 2023-11-22 14:43:00 154 mm[Hg] [facility] Diastolic blood pressure 2023-11-22 14:43:00 73 mm[Hg] [facility] Heart rate 2023-11-22 14:29:00 60 /min [facility] Respiratory rate 2023-11-22 14:29:00 18 /min [facility] Body height 2023-11-22 14:29:00 175.3 cm [facility] Body weight 2023-11-22 14:29:00 69.446 kg [facility] BMI 2023-11-22 14:29:00 22.61 kg/m2 [facility] Oxygen saturation in Arterial blood by Pulse oximetry 2023-11-22 14:29:00 97 /min [facility] Systolic blood pressure 2023-08-07 18:41:00 138 mm[Hg] [facility] Diastolic blood pressure 2023-08-07 18:41:00 70 mm[Hg] [facility] Heart rate 2023-08-07 18:40:00 71 /min [facility] Body temperature 2023-08-07 18:40:00 36.72 Ammy [facility] Respiratory rate 2023-08-07 18:40:00 18 /min [facility] Body height 2023-08-07 18:40:00 172.7 cm [facility] Body weight 2023-08-07 18:40:00 70.308 kg [facility] BMI 2023-08-07 18:40:00 23.57 kg/m2 [facility] Oxygen saturation in Arterial blood by Pulse oximetry 2023-08-07 18:40:00 98 /min [facility] Systolic blood pressure 2023-05-07 20:58:00 138 mm[Hg] [facility] Diastolic blood pressure 2023-05-07 20:58:00 71 mm[Hg] [facility] Heart rate 2023-05-07 20:58:00 69 /min [facility] Body temperature 2023-05-07 20:58:00 36.83 Ammy [facility] Respiratory rate 2023-05-07 20:58:00 18 /min [facility] Body height 2023-05-07 20:58:00 175.3 cm [facility] Body weight 2023-05-07 20:58:00 71.532 kg [facility] BMI 2023-05-07 20:58:00 23.29 kg/m2 [facility] Oxygen saturation in Arterial blood by Pulse oximetry 2023-05-07 20:58:00 98 /min [facility] Systolic blood pressure 2022-08-24 14:09:00 140 mm[Hg] [facility] Diastolic blood pressure 2022-08-24 14:09:00 85 mm[Hg] [facility] Heart rate 2022-08-24 14:09:00 76 /min [facility] Oxygen saturation in Arterial blood by Pulse oximetry 2022-08-24 14:09:00 99 /min [facility] Body temperature 2022-08-24 14:07:00 36.5 Ammy [facility] Respiratory rate 2022-08-24 14:07:00 17 /min [facility] Body height 2022-08-24 14:07:00 175.3 cm [facility] Body weight 2022-08-24 14:07:00 70.806 kg [facility] BMI 2022-08-24 14:07:00 23.05 kg/m2 [facility] Systolic blood pressure 2022-02-23 19:12:00 137 mm[Hg] [facility] Diastolic blood pressure 2022-02-23 19:12:00 75 mm[Hg] [facility] Heart rate 2022-02-23 19:12:00 76 /min [facility] Body temperature 2022-02-23 19:12:00 36.94 Ammy [facility] Respiratory rate 2022-02-23 19:12:00 16 /min [facility] Body weight 2022-02-23 19:12:00 73.086 kg [facility] BMI 2022-02-23 19:12:00 23.79 kg/m2 [facility] Oxygen saturation in Arterial blood by Pulse oximetry 2022-02-23 19:12:00 98 /min [facility] Systolic blood pressure 2022-01-24 19:44:00 171 mm[Hg] taken w pt's bp machine [facility] Diastolic blood pressure 2022-01-24 19:44:00 90 mm[Hg] taken w pt's bp machine [facility] Heart rate 2022-01-24 19:44:00 78 /min [facility] Body temperature 2022-01-24 19:43:00 37.17 Ammy [facility] Respiratory rate 2022-01-24 19:43:00 17 /min [facility] Body weight 2022-01-24 19:43:00 71.487 kg [facility] BMI 2022-01-24 19:43:00 23.27 kg/m2 [facility] Oxygen saturation in Arterial blood by Pulse oximetry 2022-01-24 19:43:00 98 /min [facility] Systolic blood pressure 2022-01-02 15:57:00 156 mm[Hg] [facility] Diastolic blood pressure 2022-01-02 15:57:00 63 mm[Hg] [facility] Heart rate 2022-01-02 15:57:00 47 /min [facility] Respiratory rate 2022-01-02 15:57:00 18 /min [facility] Oxygen saturation in Arterial blood by Pulse oximetry 2022-01-02 15:57:00 98 /min [facility] Body temperature 2022-01-02 15:54:00 36.39 Ammy [facility] Body height 2022-01-02 15:54:00 175.3 cm [facility] Body weight 2022-01-02 15:54:00 70.943 kg [facility] BMI 2022-01-02 15:54:00 23.10 kg/m2 [facility] Systolic blood pressure 2021-12-16 19:00:00 139 mm[Hg] [facility] Diastolic blood pressure 2021-12-16 19:00:00 87 mm[Hg] [facility] Heart rate 2021-12-16 19:00:00 65 /min [facility] Respiratory rate 2021-12-16 19:00:00 15 /min [facility] Oxygen saturation in Arterial blood by Pulse oximetry 2021-12-16 19:00:00 95 /min [facility] Body temperature 2021-12-16 15:53:00 36.44 Ammy [facility] Body height 2021-12-16 15:53:00 175.3 cm [facility] Body weight 2021-12-16 15:53:00 71.215 kg [facility] BMI 2021-12-16 15:53:00 23.18 kg/m2 [facility] BP Diastolic 2021-08-16 00:00:00 76 mm[Hg] [facility] Height 2021-08-16 00:00:00 68 [in_i] [facility] BMI (Body Mass Index) 2021-08-16 00:00:00 24.5 kg/m2 [facility] BP Systolic 2021-08-16 00:00:00 176 mm[Hg] [facility] Body Weight 2021-08-16 00:00:00 2576 [oz_av] [facility] Procedures Procedure Date / Time Performed Performing Clinician Source FLU VACC(),65+YR,0.5 ML,IM,ADJUVANTED,TIV(FLUAD) 2024-02-12 15:00:32 Doctor Unassigned, Hunker [facility] CT HEAD WO CONTRAST 2023-12-04 14:18:10 Eri Obrien [facility] ASSIGNMENT OF BENEFITS 2023-05-07 20:43:24 Docto r Unassigned, Hunker [facility] PATIENT FINANCIAL POLICY 2022-08-24 13:59:49 Doctor Unassigned, Hunker [facility] FLU VACC(),65+YR,0.5 ML,IM,ADJUVANTED,QUAD(FLUAD ) 2022-01-24 19:51:19 Sandoval Umana [facility] CONSENT/REFUSAL FOR DIAGNOSIS AND TREATMENT 2022-01-02 15:30:45 Doctor Unassigned, [place]unker [facility] URINALYSIS 2021-12-16 17:21:00 Halle Valle [facility] XR CHEST 1 VW 2021-12-16 16:12:12 Valle [facility] TROPONIN I 2021-12-16 16:03:00 [facility] COMP. METABOLIC PANEL ([id number]) 2021-12-16 16:03:00 Halle Valle [facility] CBC WITH DIFF 2021-12-16 16:03:00 Singer [facility] CONSENT/REFUSAL FOR DIAGNOSIS AND TREATMENT 2021-12-16 15:46:21 Doctor Unassigned, Hunker [facility] electrocardiogram 2021-08-16 00:00:00 Nina via Medical Carotid Endarterectomy [facility] Tonsillectomy [facility] Appendectomy [facility] Knee Arthroscopy/surgery Nina via Medical Plan [...] End Date/Time Encounter Type Admission Type Attending [facility] Facility Care Department Encounter ID Source 2024-10-16 00:00:00 2024-10-17 15:47:34 [facility] 1.2.840.114 350.1.13.10 4.2.7.2.686 [id number] [id number] [facility] 2024-08-22 00:00:00 2024-08-25 16:52:09 Telephone Micah [facility] 1.2.840.114 350.1.13.10 4.2.7.2.686 [id number] [facility] 2024-07-24 00:00:00 2024-07-25 12:59:29 Refill Micah [facility] 1.2.840.114 350.1.13.10 4.2.7.2.686 [id number] 044 [id number] [facility] 2024-06-20 00:00:00 2024-06-20 14:50:47 Telephone Micah [facility] 1.2.840.114 350.1.13.10 4.2.7.2.686 [id number] 044 [id number] [facility] 2024-06-16 10:45:00 2024-06-16 11:00:00 [employer] Professional Visit Lab, Muna Peralta Ang - [facility] 1.2840.114 350.1.13.10 4.2.7.2.686 [id number] [facility] 2024-06-16 10:45:00 2024-06-16 10:45:00 Outpatient R MUNA OBRIEN CHRISTINE [facility] [id number] [facility] 2024-06-16 09:40:00 2024-06-16 10:37:11 Office Visit Muna Obrien [facility] HOLLIS?BIANCA [facility] 1.2840.114 350.1.13.10 4.2.7.2.686 [id number] 044 [id number] [facility] 2023-11-19 00:00:00 2024-04-26 07:00:34 Orders Only Lavonne Turpin Perla [facility] 1.2840.114 350.1.13.10 4.2.7.2.686 [id number] 044 [id number] [facility] 2024-04-19 00:00:00 2024-04-24 15:54:06 Donna Spears [facility] 1.2840.114 350.1.13.10 4.2.7.2.686 [id number] 044 [id number] [facility] 2024-02-14 00:00:00 2024-02-14 10:26:37 Letter (Out) [facility] (TONIE) 1.2840.114 350.1.13.10 4.2.7.2.686 [id number] [id number] [facility] 2024-02-12 09:40:00 2024-02-12 10:00:00 Imm/Inj Visit Nurse, Muna Johnson Nurse, Segun Ferraro [facility] 1.2840.114 350.1.13.10 4.2.7.2.686 [id number] 044 [id number] [facility] 2024-02-12 09:40:00 2024-02-12 09:40:00 Outpatient R MICAH [facility] [id number] [facility] 2024-02-12 08:20:00 2024-02-12 08:40:[address] [facility] 1.2.840.114 350.1.13.10 4.2.7.2.686 [id number] 044 [id number] [facility] 2024-02-05 00:00:00 2024-02-05 13:03:28 Refill Micah [facility]IS[facility] 1.2.840.114 350.1.13.10 4.2.7.2.686 [id number] 044 [id number] [facility] 2024-01-11 00:00:00 2024-01-11 11:48:36 Letter (Out) [facility] (TONIE) 1.2.840.114 350.1.13.10 4.2.7.2.686 [id number] [facility] 2024-01-09 00:00:00 2024-01-09 11:59:10 Telephone Kellyrigo [facility] 1.2.840.114 350.1.13.10 4.2.7.2.686 [id number] [id number] [facility] 2023-12-07 00:00:00 2023-12-10 13:20:39 Telephone Micah [facility] 1.2.840.114 350.1.13.10 4.2.7.2.686 [id number] 044 [id number] [facility] 2023-12-04 08:57:36 2023-12-04 23:59:00 Outpatient R MUNA OBRIENMUNA [facility] [id number] [facility] 2023-12-04 08:57:36 2023-12-04 23:59:00 Hospital Encounter Muna bOrien [facility] 1.2840.114 350.1.13.10 4.2.7.2.686 [id number] [facility] 2023-11-23 00:00:00 2023-11-23 10:35:55 [facility] 1.2840.114 350.1.13.10 4.2.7.2.686 [id number] 044 [id number] [facility] 2023-11-22 10:45:00 2023-11-22 10:45:00 [employer] Professional Visit Lab, Ang - Muna Hayes Lab, Ang [facility] 1.2840.114 350.1.13.10 4.2.7.2.686 [id number] [facility] 2023-11-22 09:40:00 2023-11-22 10:31:14 Outpatient R [facility]EN [facility] [id number] [facility] 2023-11-22 09:40:00 2023-11-22 10:31:[address] 1.2840.114 350.1.13.10 4.2.7.2.686 [id number] [id number] [facility] 2023-10-28 00:00:00 2023-10-29 14:41:26 Refill Donna Baker [facility] 1.2840.114 350.1.13.10 4.2.7.2.686 [id number] [id number] [facility] 2023-09-20 09:00:00 2023-09-20 09:00:00 Outpatient R [facility] [id number] [facility] 2023-09-17 00:00:00 2023-09-17 10:25:43 Letter (Out) [facility] 1.2.840.114 350.1.13.10 4.2.7.2.686 [id number] [facility] 2023-08-29 00:00:00 2023-08-30 11:10:25 Telephone Micah [facility] 1.2.840.114 350.1.13.10 4.2.7.2.686 [id number] [id number] [facility] 2023-08-07 13:40:00 2023-08-07 14:08:00 Office Visit Micah [facility] 1.2.840.114 350.1.13.10 4.2.7.2.686 [id number] 044 [id number] [facility] 2023-08-07 13:40:00 2023-08-07 14:08:00 Outpatient R [facility]NA [facility]EN [facility] [id number] [facility] 2023-05-15 00:00:00 2023-05-15 00:00:00 Telephone Donna Baker [facility] 1.2.840.114 350.1.13.10 4.2.7.2.686 [id number] 044 [id number] [facility] 2023-05-14 10:00:00 2023-05-14 11:06:14 Outpatient R DONNA BAKER [facility] [id number] [facility] 2023-05-14 10:00:00 2023-05-14 10:15:00 [employer] Professional Visit Lab, Ang - Db Cotta, [facility] HOLLIS?[facility] 1.840.114 350.1.13.10 4.2.7.2.686 [id number] [facility] 2023-05-07 15:00:00 2023-05-07 15:23:22 Outpatient R DONNA BAKER [facility] [id number] [facility] 2023-05-07 15:00:00 2023-05-07 15:23:22 Office Visit Donna [facility] 1.84.114 350.1.13.10 4.2.7.2.686 [id number] [facility] 2023-05-07 00:00:00 2023-05-07 00:00:00 Orders Only Doctor Unassigned, Hunker [facility] 1..114 350.1.13.10 4.2.7.2.686 [id number] [facility] 2022-10-26 00:00:00 2022-10-26 00:00:00 [facility]phone [facility] 1.840.114 350.1.13.10 4.2.7.2.686 [id number] [id number] [facility] 2022-10-24 08:15:00 2022-10-24 08:35:01 Outpatient R [facility] [id number] [facility] 2022-10-24 08:15:00 2022-10-24 08:30:00 [employer] Professional Visit 2, Adc Lab Dong [facility] BUILD[facility] 1.840.114 350.1.13.10 4.2.7.2.686 [id number] [facility] 2022-10-20 00:00:00 2022-10-20 00:00:00 [facility] 1.2.840.114 350.1.13.10 4.2.7.2.686 [id number] 059 [id number] [facility] 2022-09-04 00:00:00 2022-09-04 00:00:00 Refill [facility] 1.2.840.114 350.1.13.10 4.2.7.2.686 [id number] 059 [id number] [facility] 2022-08-24 09:20:00 2022-08-24 09:28:55 Office Visit [facility] 1.2.840.114 350.1.13.10 4.2.7.2.686 [id number] [facility] 2022-08-24 09:20:00 2022-08-24 09:20:00 Outpatient R DONG [facility] [id number] [facility] 2022-08-24 00:00:00 2022-08-24 00:00:00 Orders Only Doctor Unassigned, Hunker [facility] 1.2.840.114 350.1.13.10 4.2.7.2.686 [id number] [facility] 2022-02-23 13:00:00 2022-02-23 13:35:08 Outpatient R [facility] [id number] [facility] 2022-02-23 13:00:00 2022-02-23 13:35:08 Office Visit Dong [facility] 1.2.840.114 350.1.13.10 4.2.7.2.686 [id number] [facility] 2022-01-24 13:40:00 2022-01-24 14:02:58 Office Visit Dong[facility] 1.840.114 350.1.13.10 4.2.7.2.686 [id number] [facility] 2022-01-24 13:40:00 2022-01-24 14:02:58 Outpatient R [facility] [id number] [facility] 2022-01-19 00:00:00 2022-01-19 00:00:00 Telephone Dong [facility] NAL [facility] 1.840.114 350.1.13.10 4.2.7.2.686 [id number] [facility] 2022-01-16 08:53:46 2022-01-16 23:59:00 Outpatient R CRISELDA [facility] [id number] [facility] 2022-01-04 00:00:00 2022-01-04 00:00:00 [facility] 1.840.114 350.1.13.10 4.2.7.2.686 [id number] [facility] 2022-01-02 10:40:00 2022-01-02 11:20:56 Outpatient R CRISELDA [facility] [id number] [facility] 2022-01-02 10:40:00 2022-01-02 11:20:56 Office Visit Dong [facility] NAL [facility]ILD[facility] 1.840.114 350.1.13.10 4.2.7.2.686 [id number] [facility] 2022-01-02 00:00:00 2022-01-02 00:00:00 Orders Only Doctor Unassigned, Hunker [facility] 1.284.114 350.1.13.10 4.2.7.2.686 [id number] [facility] 2021-12-29 10:00:00 2021-12-29 10:15:00 [employer] Professional Visit 2, Adc Lab Perl[facility] 1.840.114 350.1.13.10 4.2.7.2.686 [id number] [facility] 2021-12-29 10:00:00 2021-12-29 10:00:00 Outpatient PERLITA LIMA [facility] [id number] [facility] 2021-12-16 10:55:00 2021-12-16 14:18:00 Emergency X HALLE [facility] ERT [id number] [facility] 2021-12-16 10:55:00 2021-12-16 14:18:00 Emergency Halle Valle [facility] 1.840.114 350.1.13.10 4.2.7.2.686 [id number] [facility] 2021-10-23 19:36:00 2021-10-23 19:36:00 Emergency X LEEANN ROWAN [facility] ERT [id number] [facility] 2021-08-16 00:00:00 2021-08-16 00:00:00 Wili De La Garza, MASON HELPER: [address] [place] [address] , Ph. [facility] - GC_HGMDA_Go nzalez [facility] Office [id number] [facility] 2021-08-16 00:00:00 2021-08-16 00:00:00 Outpatient Tico De La Garzaer [facility] [id number] 2020-01-29 00:00:00 2020-01-29 00:00:00 Telephone Pcp, Patient Does Not Have A [facility] 1.840.114 350.1.13.10 4.2.7.2.686 [id number] [facility] 2020-01-24 16:30:13 2020-01-24 16:50:13 Laboratory Only Lab, Adc Fam Pob Daija Rodriguez [facility] [address] 1..840.114 350.1.13.10 4.2.7.2.686 [id number] [facility] 2020-01-24 16:20:00 2020-01-24 16:48:36 Outpatient R DAIJA RAYO [facility] [id number] [facility] Results Test Description Test Time Test Comments [...] The calvariumand central skull base are unremarkable. [facility] ([id number]2021-12-16 16:33:30* Test Item Value Reference Range Interpretation Comme nts NA (test code = 2291486517) 138 mmol/L 135-145 K (test code = 7277254204) 4.7 mmol/L 3.5-5 CL (test code = 2588532669) 98 mmol/L 98-108 CO2 TOTAL (test code = 9676992063) 26 mmol/L 23-31 AGAP (test code = 4111080273) 2-16 BUN (test code = 3673019200) 24 mg/dL 7-23 H GLUCOSE (test code = 2190204262) 110 mg/dL 70-110 CREATININE (test code = 6695773772) 1.37 mg/dL 0.6-1.25 H TOTAL BILI (test code = 1324568852) 0.8 mg/dL 0.1-1.1 CALCIUM (test code = 3897424930) 10.3 mg/dL 8.6-10.6 T PROTEIN (test code = 3628569334) 7.4 g/dL 6.3-8.2 ALBUMIN (test code = 3104256639) 4.8 g/dL 3.5-5 ALK PHOS (test code = 3368083215) 58 U/L 34-122 ALTv (test code = 1742-6) 21 U/L 5-50 AST(SGOT) (test code = 9914276292) 24 U/L 13-40 eGFR (test code = 9984913557) mL/min/1.73m2 SINAN (test code = SINAN) Association [...] imaging tests). Lab Interpretation (test code = 35319-6) Abnormal [facility] WITH [id number] 16:16:08* Test Item Value Reference Range Interpretation [...] 34.8 g/dL 31.2-35 RDW-SD (test code = 32926-2) 38.2 fL 38.5-51.6 L RDW-CV (test code = 788-0) 12.5 % 12.1-15.4 PLT (test code = 777-3) See_Comment [Automated messa ge] The system which generated this result transmitted reference range: 150 - 328 10*3/?L. The reference range was not used to interpret this result as normal/abnormal. MPV (test code = 46002-8) 9.9 fL 9.8-13 NRBC/100 WBC (test code = 4634432203) See_Comment [Automated [employer] ssage] The system which generated this result transmitted reference range: 0.0 - 10.0 /100 WBCs. The reference range was not used to interpret this result as normal/abnormal. NRBC x10^3 (test code = 5692409139) See_Comment [Automated messa ge] The system which generated this result transmitted reference range: 10*3/?L. The reference range was not used to interpret this result as normal/abnormal. GRAN MAT (NEUT) % (test code = 770-8) 56.8 % IMM GRAN % (test code = 8008096960) 0.40 % LYMPH % (test code = 736-9) 31.3 % MONO % (test code = 5905-5) 8.8 % EOS % (test code = 713-8) 1.9 % BASO % (test code = 706-2) 0.8 % GRAN MAT x10^3(ANC) (test code = 4805616828) 4.13 10*3/uL 1.99-6.95 IMM GRAN x10^3 (test code = 9291038450) 0.03 10*3/uL 0-0.06 LYMPH x10^3 (test code = 731-0) 2.28 10*3/uL 1.09-3.23 MONO x10^3 (test code = 742-7) 0.64 10*3/uL 0.36-1.02 EOS x10^3 (test code = 711-2) 0.14 10*3/uL 0.06-0.53 BASO x10^3 (test code = 704-7) 0.06 10*3/uL 0.01-0.09 Lab Interpretation (test code = 90245-9) Abnormal [facility] Notes Date/Time Note Provider Source 2024-10-17 15:46:37 Last Refilled: METOPROLOL SUCCINATE XL 50 mg 24 hr tablet 90 tablet 1 04/24/2024 -- No Sig: TAKE 1 TABLET BY MOUTH IN THE MORNING Sent to pharmacy as: metoprolol succinate ER 50 mg tablet,extended release 24 hr (TOPROL XL) Class: eRX Route: Oral Order: [id number] Date/Time Signed: 04/24/2024 15:54 E-Prescribing Status: Receipt confirmed by pharmacy (04/24/2024 3:54 PM TOOLMAKER HELPER) Recent Visits Date Type Provider Dept 06/16/24 Office Visit Muna Obrien MD Ang-Db [facility] 02/12/24 Office Visit Muna Obrien MD Ang-Db [facility] 11/22/23 Office Visit Muna Obrien [...] and meeting all other requirements Darlyn Talley [facility] 2024-08-25 16:52:03 Done [facility] 2024-08-23 13:56:28 Please review, complete, and sign if appropriate. [facility] 2024-08-22 16:15:27 Tonie Love is a 79 year old male Patient is requesting a referral to: Dept: Ophthalmology Reason for referral: macular degeneration f/u External referral: Name of provider / location patient requesting: [facility] Phone number: [phone] Appt already scheduled?: y If yes, date of appt.: 08.26.24 Micaela Lockett [facility] 2024-06-20 14:43:06 Notified patient of test results/recommendations [...] 06/18/2024 10:12 PM CDT Echo Calvo MA [facility] 2024-06-20 14:15:16 Tonie Love is a 79 year old male The patient is requesting a call with his test results. He said he got a text that they were on MyChart but he does not use MyChart. Cristina Cotton [facility] 2024-06-16 10:45:00 Images from the original note were not included. Venipuncture collection performed by clean technique on the left anticubitus. Total of 1 attempts were made. Slight pressure and a bandage/dressing were applied to the site(s). The patient experienced no complications. The following specimens were processed according to instructions and sent to [facility] laboratories per lab order on 06/16/2024 : LT BLUE SST 1 RED LAV 2 PPT DK GREEN (LiHep) DK GREEN (SodH) MARINA DK BLUE (K2) DK BLUE (S) ACD Blood Culture NIPT/NTD Patient has been identified by and name and was provided with cup, antiseptic towelette, and clean catch instructions. 1 urine specimen(s) sent. Unpreserved 1 Urine Culture Aptima tube Other urine [facility] 2024-04-24 09:43:08 Patient denied use of Atenolol and only taking Metoprolol and Valsartan at this time. MAKER HELPER [facility] 2024-04-22 17:24:30 Is he taking atenolol as well? Please clarify which betablocker he is taking. Dr. Micah Phillips [facility] 2024-04-21 14:54:23 Images from the original note were not included. Notes: 10/29/23 Last Refilled: [id number] - [place], [place] - [address] AT [facility] & Recent Visits Date Type Provider Dept [...] KRZYSZTOF Hinkle Last refill: 01/23/2024 Rx #: [id number]|1|0|1 Cardiovascular: Beta Blockers Nbnziz7504/19/2024 08:26 AM Protocol Details Valid encounter within last 12 months Heart rate within normal limits and completed in the last 12 months To be filled at: [facility] #[id number], [place] - [address] AT [facility] [address] MAKER HELPER Ashley Peralta MA [facility] 2024-02-05 13:02:25 Images from the original note [...] Obrien MD Last refill: 12/10/2023 Rx #: [id number]|1|0|1 Psychiatry: Antidepressants Wpnkuc4302/05/2024 08:21 AM Protocol Details Manual Review: Verify no changes in dose in the last 3 months Valid encounter within last 12 months To be filled at: [facility] #[id number] [place] [address] AT [facility] [address] Recent Visits Date [...] authorizing provider and meeting all other requirements Y Calvo MA [facility] 2024-01-09 11:53:47 Referral placed for [facility]. And faxed. P:[phone] F:[phone] T [facility] 2024-01-09 11:06:20 Tonie Love is a 78 year old male is requesting assistance with finding diamond die driller [place] so that he may have an eye exam for glasses Please advise [phone] (home) T [facility] 2023-12-10 13:20:14 Patient notified of all and verbalized understanding. No further needs were voiced. [facility] 2023-12-10 12:35:53 That is a rare side effect. Stop sertraline. We can try a different medicine called citalopram. Let us know if he has any side effects. Best, Dr. Obrien T [facility] 2023-12-07 11:10:45 Please review and advise. MANUEL 11/22/23 NOV 02/12/24 [facility] 2023-12-07 10:42:05 Tonie Love is a 78 year old male Pt saw the doctor on 11/21 and was prescribed sertraline 25 mg. He said it took it for 7 days and had "bad diarrhea". He stopped it on 11/30 and took it again this morning and within 2 hours he had diarrhea again. Please call [phone]. T [facility] 2023-11-23 10:34:54 Spoke with patient and informed him that the labs had not been resulted on as of yet. He would receive a call when they had. He voiced understanding. Mila Alfonso RN [facility] 2023-11-23 09:48:04 Tonie Love is a 78 year old male would like to go over his recent lab results with a nurse. Please advise. [facility] 2023-11-22 10:45:00 Images from the original note were not included. Venipuncture collection performed by clean technique on the left anticubitus. Total of 1 attempts were made. Slight pressure and a bandage/dressing were applied to the site(s). The patient experienced no complications. The following specimens were processed according to instructions and sent to [facility] laboratories per lab order on 11/22/2023 : LT BLUE SST 2 RED LAV 1 PPT DK GREEN (LiHep) DK GREEN (SodH) MARINA DK BLUE (K2) DK BLUE (S) ACD Blood Culture NIPT/NTD Patient has been identified by and name and was provided with cup, antiseptic towelette, and clean catch instructions. 1 urine specimen(s) sent. Unpreserved 1 Urine Culture Aptima tube Other urine [facility] 2023-10-29 14:40:21 Last Refilled: Disp Refills Start End SACHI metoprolol succinate XL 50 mg 24 hr tablet 90 tablet 1 05/07/2023 -- No Sig: Take 1 tablet by mouth in the morning. Sent to pharmacy as: metoprolol succinate ER 50 mg tablet,extended release 24 hr (TOPROL XL) Class: eRX Route: Oral Order: [id number] Date/Time Signed: 05/07/2023 15:21 E-Prescribing Status: Receipt confirmed by pharmacy (05/07/2023 4:36 PM TOOLMAKER HELPER) Notes: Recent Visits Date Type Provider Dept [...] authorizing provider and meeting all other requirements [employer] Visit on 05/14/2023 Component Date Value NA [...] x10 3 05/14/2023 0.08 Mila Alfonso RN [facility] 2023-08-30 11:09:54 Referral placed per provider approval . [facility] 2023-08-29 21:57:36 I approve a referral. Dr Esvin gibbons in [facility] is good. Best, Dr. Obrien T [facility] 2023-08-29 10:25:58 Copied from [facility] #[id number]. Topic: Clinical - Referral >> Aug 29, 2023 10:23 AM Patient Photo Printer wrote: Tonie Love is a 78 year old male Patient requesting a referral to a Bail Bonding Agent for a skin check asking if Dr. Obrien can recommend someone to him. Please advise and call patient with an update. [phone] (home) T [facility] 2023-05-16 10:56:27 Patient has been notified of test results/ recommendations per Donna Baker Gave verbal understanding [facility] 2023-05-15 15:33:48 Copied from [facility] #[id number]. Topic: Clinical - Results >> May 15, 2023 3:32 PM Patient Photo Printer wrote: Patient called stating that he had a missed call for his results and would like a call back on those results Please advise [facility] 2023-05-14 10:00:00 Images from the original note were not included. Venipuncture collection performed by clean technique on the left anticubitus. Total of 1 attempts were made. Slight pressure and a bandage/dressing were applied to the site(s). The patient experienced no complications. The following specimens were processed according to instructions and sent to [facility] laboratories per lab order on 05/14/2023 : LT BLUE SST 1 RED LAV 1 PPT DK GREEN (LiHep) DK GREEN (SodH) MARINA DK BLUE (K2) DK BLUE (S) ACD Blood Culture NIPT/NTD [facility] 2022-10-26 08:53:48 Formatting of this n ote might be different from the original. Images from the original note were not included. Results shred with patient, verbalized understanding Sandoval Umana MD P Cardiology Nurse Labs are good for refills. Renal function has improved. Cholesterol is still suboptimal. Increase Lipitor to 80 mg daily and also add Zetia 10 mg daily. [facility] 2022-10-24 08:15:00 Formatting of this n ote is different from the original. Images from the original note were not included. Venipuncture collection performed by clean technique on the left anticubitus. Total of 1 attempts were made. Slight pressure and a bandage/dressing were applied to the site(s). The patient experienced no complications. The following specimens were processed according to instructions and sent to [facility] laboratories per lab order on 10/24/2022 : LT BLUE SST 1 RED LAV 1 PPT DK GREEN (LiHep) DK GREEN (SodH) MARINA DK BLUE (K2) DK BLUE (S) ACD Blood Culture NIPT/NTD [facility] 2022-10-23 08:58:15 Formatting of this n ote might be different from the original. Images from the original note were not included. Refill request received for atorvastatin. Patient due for labs per [facility] Cardiology Refill Guidelines. Orders were entered on 10.20.22 for lipid panel, CMP, CBC and Hepatic function. Discussed with patient that we can send 30 day supply for continuity of care but he will need to get labs for further refills. He verbalized understanding via teach back. Rx sent to: [id number] [place] [id number] AT [facility] [address] Olamide Naranjo RN [facility] 2022-10-20 14:01:10 Addended by: TREVER VELIZ RN on: 10/20/2022 02:01 PM Modules accepted: Orders T [facility] 2022-10-20 13:52:42 Formatting of this n ote might be different from the original. Valsartan refill sent for 90 days no refills for continuity of care. Lab orders placed, LVM on VM to call clinic with concerns MANUEL 08/24/22 Labs 12/16/21 T [facility]
[2024-12-10] MEDS ORDERED: LIDOCAINE 1% 20 ML MDV ONE (16:18)
[2024-12-10] MEDS ORDERED: TDAP (DIPHTH,PERTUSS(ACELL),TET VAC) 0.5 ML VIAL IMVAC ONE (16:18)
--- NOTE | 2024-12-10 16:55 | ER ---
Nurse's Notes [facility] Name: Abraham Patel Age: 79 yrs Sex: Male : 1945 Arrival Date: 12/10/2024 Time: 15:48 Bed 13 Private MD: Diagnosis: Laceration without foreign body of knee-Left, x2 Presentation: 12/10 16:05 Chief complaint: Patient states: HE WAS CUTTING A LIMB, TURNED OFF THE CHAIN SAW, THE dd2 LIMB HIT THE CHAIN SAW AND THE BLADE WENT ACROSS LT KNEE, CUTTING KNEE. Coronavirus screen: At this time, the client does not indicate any symptoms associated with coronavirus-19. Ebola Screen: No symptoms or risks identified at this time. Complicating Factors: There are no complicating factors for this patient. Initial Sepsis Screen: Does the patient meet any 2 criteria? No. Patient's initial sepsis screen is negative. Does the patient have a suspected source of infection? No. Patient's initial sepsis screen is negative. Risk Assessment: Do you want to hurt yourself or someone else? Patient reports no desire to harm self or others. Onset of symptoms was December 10, 2024. 16:05 Method Of Arrival: Ambulatory dd2 16:05 Acuity: BYRON 3 dd2 Triage Assessment: 16:07 General: Appears in no apparent distress. uncomfortable, Behavior is calm, cooperative, dd2 appropriate for age. Pain: Complains of pain in left quadriceps. Injury Description: Laceration sustained to left knee was sustained 1-2 hours ago. is bleeding moderately. Historical: - Allergies: 16:07 PENICILLINS; dd2 - PMHx: 16:07 Hypercholesterolemia; Hypertensive disorder; dd2 - PSHx: 16:07 Appendectomy; Operative procedure on knee; Tonsillectomy; dd2 - Immunization history:: Adult Immunizations not up to date, Last tetanus immunization: unknown. - Social history:: Smoking status: Patient denies any tobacco usage or history of. Screenin:15 [facility] ED Fall Risk Assessment (Adult) History of falling in the last 3 months, mb9 including since admission No falls in past 3 months (0 pts) Confusion or Disorientation No (0 pts) Intoxicated or Sedated No (0 pts) Impaired Gait No (0 pts) Mobility Assist Device Used No (0 pt) Altered Elimination No (0 pt) Score/Fall Risk Level 0 - 2 = Low Risk Oriented to surroundings, Maintained a safe environment, Educated pt \T\ family on fall prevention, incl call for assistance when getting out of bed. Abuse screen: Denies threats or abuse. Nutritional screening: No deficits noted. Tuberculosis screening: No symptoms or risk factors identified. Assessment: 16:14 General: Appears in no apparent distress. Behavior is calm, cooperative. Pain: mb9 Complains of pain in left knee. Neuro: Frances Agitation-Sedation Scale (RASS): 0 - Alert and Calm Level of Consciousness is awake, alert, obeys commands, Oriented to person, place, time, situation, Appropriate for age. Cardiovascular: Patient's skin is warm and dry. Respiratory: Airway is patent. GI: No signs and/or symptoms were reported involving the gastrointestinal system. : No signs and/or symptoms were reported regarding the genitourinary system. EENT: No signs and/or symptoms were reported regarding the EENT system. Derm: Musculoskeletal: Range of motion: intact in all extremities. Injury Description: Laceration sustained to left knee is clean, jagged, 0.5 to 2.5 cm long, not bleeding. Vital Signs: 16:05 BP 173 / 81; Pulse 86; Resp 16; Temp 97.8; Pulse Ox 100% ; Weight 66.22 kg; Pain 5/10; dd2 17:03 BP 165 / 75; Pulse 71; Resp 16; Pulse Ox 100% on R/A; mb9 16:05 Pain Scale: Adult dd2 ED Course: 15:53 Patient arrived in ED. im 15:54 Karen Wade F[facility]-C [facility]. kb 15:55 Dwayne Pickard DO is Attending Physician. kb 16:07 Triage completed. dd2 16:07 Arm band placed on right wrist. dd2 16:14 Consuelo Beckham, LORETO is Primary Nurse. mb9 16:15 Bed in low position. Call light in reach. Side rails up X 1. Provided Education on: [email or web address] press call light if needing anything. Client placed on continuous cardiac and pulse oximetry monitoring. NIBP monitoring applied. 17:04 Assist provider with laceration repair on left knee that was between 2.6 to 7.5 cm mb9 using sutures. Set up tray. Performed by Karen PETTY Dressed with 4X4s, Patient tolerated well. Patient did not have IV access during this emergency room visit. Administered Medications: 16:24 Drug: Lidocaine Infiltration (1 %) 1 vials 20 ml Infiltration once; to bedside Volume: mb9 20 ml; Route: Infiltration; 16:24 Drug: Boostrix Tdap IM 0.5 ml IM once; as a single dose Route: IM; Site: right deltoid; mb9 Medication: 16:15 VIS not applicable for this client. mb9 Outcome: 16:54 Discharge ordered by . anna marie 17:04 Discharged to home ambulatory, with family, mb9 17:04 Condition: stable 17:04 Discharge instructions given to patient, Instructed on discharge instructions, follow up and referral plans. Demonstrated understanding of instructions, follow-up care, medications, Prescriptions given X 1, 17:04 Patient left the ED. mb9 Signatures: Karen Wade FNP-C FNP-Ckb Wilkerson, Mary Beth, RN RN mb9 Lianna Damico DIANA RN RN dd2
--- NOTE | 2024-12-10 16:55 | EDPHYS ---
Physician Documentation [facility] Name: Abraham Patel Age: 79 yrs Sex: Male : 1945 Arrival Date: 12/10/2024 Time: 15:48 Bed 13 Private MD: ED Physician Dwayne Pickard HPI: 12/10 16:51 This 79 yrs old Male presents to ER via Ambulatory with complaints of Laceration To Leg.kb 16:51 Patient is a 79-year-old male who presents for 2 lacerations to left knee that occurred kb just prior to arrival. States he was cutting a tree with a chainsaw, the chainsaw slipped and cut his knee. Patient states the chainsaw was off when this occurred. Denies any other injury or trauma. Ambulatory with steady gait. Denies any bony pain. Historical: - Allergies: 16:07 PENICILLINS; dd2 - PMHx: 16:07 Hypercholesterolemia; Hypertensive disorder; dd2 - PSHx: 16:07 Appendectomy; Operative procedure on knee; Tonsillectomy; dd2 - Immunization history:: Adult Immunizations not up to date, Last tetanus immunization: unknown. - Social history:: Smoking status: Patient denies any tobacco usage or history of. ROS: 16:50 Constitutional: As per HPI kb Exam: 16:50 Constitutional: This is a well developed, well nourished patient who is awake, alert, kb and in no acute distress. Head/Face: Normocephalic, atraumatic. ENT: Moist Mucous membranes Respiratory: Respirations even and unlabored. No increased work of breathing. Talking in full sentences MS/ Extremity: Pulses equal, no cyanosis. Neurovascular intact. Full, normal range of motion. Neuro: Awake and alert, GCS 15, oriented to person, place, time, and situation. 16:50 Skin: injury, laceration(s), the wound is approximately 4 cm(s), of the left knee, the second wound is approximately 8 cm(s), of the left knee, that can be described as clean, no foreign body, linear, without bleeding, Vital Signs: 16:05 BP 173 / 81; Pulse 86; Resp 16; Temp 97.8; Pulse Ox 100% ; Weight 66.22 kg; Pain 5/10; dd2 17:03 BP 165 / 75; Pulse 71; Resp 16; Pulse Ox 100% on R/A; mb9 16:05 Pain Scale: Adult dd2 Laceration: 16:45 Wound Repair of 4cm ( 1.6in ) subcutaneous laceration to left knee. Linear shaped.. kb Distal neuro/vascular/tendon intact. Anesthesia: Wound infiltrated with 2 mls of 1% lidocaine. Wound prep: Extensive cleansing with hibiclenz by me, Wound irrigation with saline by me, Copious irrigation. Skin closed with 3 4-0 Prolene using simple sutures and sterile technique. Patient tolerated well. 16:45 Wound Repair of 8cm ( 3.1in ) subcutaneous laceration to left knee. Linear shaped.. kb Distal neuro/vascular/tendon intact. Anesthesia: Wound infiltrated with 3 mls of 1% lidocaine. Wound prep: Extensive cleansing with hibiclenz by me, Wound irrigation with saline by me, Wound explored moderately, Copious irrigation. Skin closed with 7 4-0 Prolene using 6 cruciate knots, 1 simple suture. Patient tolerated well. MDM: 15:55 Medical Screening Exam initiated kb 16:46 Differential diagnosis: superficial laceration, tendon injury, vascular injury. Data kb reviewed: vital signs, nurses notes. Test considered but Not performed: X-ray: knee xray considered but pt has no bony tenderness, full ROM, wound explored, no bony involvement. Historians other than the Patient: Spouse/Significant Other: . Counseling: I had a detailed discussion with the patient and/or guardian regarding the historical points, exam findings, and any diagnostic results supporting the discharge/admit diagnosis, the need for outpatient follow up, a family practitioner, to return to the emergency department if symptoms worsen or persist or if there are any questions or concerns that arise at home. 12/10 16:05 Order name: Dressing - Wound; Complete Time: 16:24 kb 12/10 16:05 Order name: Gloves, Sterile; Complete Time: 16:24 kb 12/10 16:05 Order name: Prolene, Sutures; Complete Time: 16:24 kb 12/10 16:05 Order name: Setup Suture Tray; Complete Time: 16:24 kb Administered Medications: 16:24 Drug: Lidocaine Infiltration (1 %) 1 vials 20 ml Infiltration once; to bedside Volume: mb9 20 ml; Route: Infiltration; 16:24 Drug: Boostrix Tdap IM 0.5 ml IM once; as a single dose Route: IM; Site: right deltoid; mb9 Disposition: 19:11 I was immediately available on-site in the Emergency Department for consultation in the ms3 care of the patient. Disposition Summary: 12/10/24 16:54 Discharge Ordered Condition: Stable kb Diagnosis - Laceration without foreign body of knee - Left, x2 kb Followup: kb - With: Emergency Department - When: As needed - Reason: Worsening of condition Followup: kb - With: Private Physician - When: 2 - 3 days - Reason: Recheck today's complaints, Continuance of care, Re-evaluation by your physician Discharge Instructions: - Discharge Summary Sheet kb - Laceration Care, Adult, Lify-mg-Txal kb Forms: - Medication Reconciliation Form kb - Antibiotic Education kb - Prescription Opioid Use kb - Patient Portal Instructions kb - Leadership Thank You Letter kb Prescriptions: - Doxycycline Hyclate 100 mg Oral tablet - take 1 tablet ORAL route every 12 hours; 14 tablet; Refills: 0, Product kb Selection Permitted Signatures: Karen Wade, [id number] RESIDENTIAL SALES REPRESENTATIVE-Slavab Dwayne Pickard DO DO ms3 Consuelo Beckham RN RN mb9 SUZE GAMINO RN RN dd2 Corrections: (The following items were deleted from the chart) 16:56 16:45 Wound Repair of 8cm ( 3.1in ) subcutaneous laceration to left knee. Linear kb shaped.. Distal neuro/vascular/tendon intact. Anesthesia: Wound infiltrated with 3 mls of 1% lidocaine. Wound prep: Extensive cleansing with hibiclenz by me, Wound irrigation with saline by me, Copious irrigation. Skin closed with 7 4-0 Prolene using 6 cruciate knots, 1 simple suture. Patient tolerated well. kb
[2024-12-10 17:44] VITALS: TEMP 97.8; O2SAT 100
[2024-12-10 17:48] VITALS: BP 165/75
== END 2024-12-10 17:04 | disposition home or self-care (01) ==
LOC: ER 15:48
PROC: 0JQP3ZZ Repair Left Lower Leg Subcutaneous Tissue and Fascia, Percutaneous Approach (ICD-10-PCS; principal; 2024-12-10)
DX: S81.012A Laceration without foreign body, left knee, initial encounter (principal); W29.3XXA Contact with powered garden and outdoor hand tools and machinery, initial encounter; Y93.89 Activity, other specified; Y92.017 Garden or yard in single-family (private) house as the place of occurrence of the external cause; Z23 Encounter for immunization
CPT/HCPCS: 12004; 90715; 96372; 99284; 12032; 12034; J2003

== ENCOUNTER 2024-12-16 10:27 | Emergency (ER) | payer OTHER ==
--- OUTSIDE RECORDS SUMMARY | 2024-12-16 10:32 | XMS REPORT | Continuity of Care Document ---
Author Name Unknown Address [address] [facility] [place] [address] [facility] Address [address] [facility] [place] [address] Care Team Providers Care Corporate Secretary Name Role Phone Muna Obrien MD Primary Care Physician [phone] MUNA OBRIEN Attending Clinician Unavailable MUNA OBRIEN Attending Clinician Unavailable Muna Obrien MD Attending Clinician [phone] Lab, Segun Ferraro Attending Clinician Unavailable Lavonne Turpin LVN Attending Clinician UnavailDonna Vincent Attending Clinician [phone] Segun Jovel Attending Clinician Unavailable Donna Mora Attending Clinician [phone] DONNA BAKER Attending Clinician Unavailable Lab, Segun Ferraro Attending Clinician Unavailable Doctor Unassigned, [place] Attending Clinician U navailable SANDOVAL UMANA Attending Clinician Unavailable Sandoval Umana MD Attending Clinician [phone], [facility] Attending Clinician Unavailable [email or web address] Attending Clinician Unavaila ble Perlita Jarvis DO Attending Clinician [phone] PERLITA JARVIS Attending Clinician Unavailable HALLE VALLE Attending Clinician Unavailable Halle Valle DO Attending Clinician [phone] LEEANN ROWAN Attending Clinician Unavailable Wili De La Garza Attending Clinician [phone] [phone], Patient Does Not Have A Attending Clinician Lab, [facility] Fam Pob I Attending Clinician UnavailDaija Davey Attending Clinician [phone] DAIJA RAYO Attending Clinician Unavailable MUNA OBRIEN Admitting Clinician Unavailable [email or web address] Admitting Clinician Unavaila HALLE Metz Admitting Clinician Unavailable Payers Payer Name Policy Type Policy Number Effective Date Expirati on Date Source [facility] [id number] 00:00:00 [facility] (MEDICAID REPLACEMENT HMO) [id number] [facility] (MEDICARE REPLACEMENT HMO) [id number] Problems Condition Name Condition Details Condition Category Status Onset Date Resolution Date Last Treatment Date Treating Clinician Comments Source Encounter to establish care Encounter to establish care Disease Active 05-07 00:00: 00 [facility] Mixed hyperlipid emia Mixed hyperlipid emia Disease Active - 00:00: 00 [facility] Encounter to establish care Encounter to establish care Disease Active - 00:00: 00 [facility] Bilateral carotid artery stenosis Bilateral carotid artery stenosis Disease Active 2021-03-15 00:00: 00 [facility] PAF (paroxysma l atrial fibrillati on) PAF (paroxysma l atrial fibrillati on) Disease Active 2021-03 0- 00:00: 00 [facility] Primary hypertensi on Primary hypertensi on Disease Active 2021-03 0-24 00:00: 00 [facility] Dizziness and giddiness Dizziness and giddiness Disease Active 2021-03 0-24 00:00: 00 [facility] Hyperlipid emia Hyperlipid emia Problem Active 08-16 00:00: 00 [facility] Gout Gout Problem Active 08-16 00:00: 00 [facility] Hypertensi ve disorder Hypertensi ve Disorder Problem Active 08-16 00:00: 00 [facility] No known active problems No known active problems Disease [facility] Allergies, Adverse Reactions, Alerts Allergy Name Allergy Type Status Severity Reaction(s) Onset Date Inactive Date Treating Clinician Comments Source CODEINE DRUG INGREDI Active Med Hallucinates 07-11 00:00: 00 [facility] Codeine Propensi ty to adverse reaction s to drug Active Other - See comments 07-11 00:00: 00 "Feels high" [facility] PENICILL INS Drug Class Active High Anaphylaxis 06-26 00:00: 00 [facility] Penicill ins Propensi ty to adverse reaction s Active Anaphylaxis 06-26 00:00: 00 [facility] Penicill ins Propensi ty to adverse reaction s Active Anaphylaxis 06-26 00:00: 00 [facility] Penicill ins Drug Allergy Active Anaphylaxis 0 06-26 00:00: 00 [facility] Penicill ins Drug Allergy Active Anaphylaxis 0 06-26 00:00: 00 [facility] Penicill ins Drug Allergy Active Anaphylaxis 0 06-26 00:00: 00 [facility] PENICILL INS Allergy to substanc e Active [facility] Social History Social Habit Start Date Stop Date Quantity Comments Source Gender identity [facility] Sexual orientation U [facility] History of tobacco use Cigarette Smoker [facility] Alcoholic beverage intake 2024-06-16 00:00:00 2024-06-16 00:00:00 Current drinker of alcohol (finding) [facility] History of Social function 2024-02-12 00:00:00 2024-02-12 00:00:00 [facility] Tobacco use and exposure 2024-02-12 00:00:00 2024-02-12 00:00:00 Smokeless tobacco non-user [facility] Tobacco Comment 2024-02-12 00:00:00 2024-02-12 00:00:00 Smoked 1 ppd for 6 years- quit x50 years ago [facility] Alcohol Comment 2024-02-12 00:00:00 2024-02-12 00:00:00 Occasionally [facility] Exposure to SARS-CoV-2 (event) 2022-02-13 00:00:00 2022-02-23 12:53:00 Not sure [facility] Sex assigned at 1945 00:00:00 1945 00:00:00 [facility] Smoking Status Start Date Stop Date Source Never Smoker [facility] Tobacco smoking consumption unknown [facility] Ex-smoker 2024-02-12 00:00:00 2024-02-12 00:00:00 [facility] Medications Ordered Medication Name Filled Medication Name Start Date Stop Date Current Medication? Ordering Clinician Indication Dosage Frequency Signature (SIG) Comments Components Source metoprolol succinate XL 50 mg 24 hr tablet 10-17 00:00: 00 Yes [id number] 50mg TAKE 1 TABLET BY MOUTH IN THE MORNING [facility] atorvastati n 40 mg tablet 07-28 00:00: 00 Yes [id number] 40mg Take 1 tablet by mouth at bedtime. [facility] ezetimibe 10 mg tablet 07-28 00:00: 00 Yes [id number] 10mg Take 1 tablet by mouth in the morning. [facility] METOPROLOL SUCCINATE XL 50 mg 24 hr tablet 04-24 00:00: 00 10-17 00:00 :00 No [id number] 50mg TAKE 1 TABLET BY MOUTH IN THE MORNING [facility] ketoconazol e 2 % shampoo 2023-03 00:00: 00 Yes [id number] Apply lather to scalp and maki, let it sit for 5 minutes, then rinse off, do this 2-3x weekly for a month or until rash improves [facility] clobetasoL 0.05 % foam 2023-03 00:00: 00 Yes [id number] Apply to area(s) 2 (two) times daily. For 2 weeks [facility] citalopram 10 mg tablet 2023-03 00:00: 00 02-11 00:00 :00 No [id number] 10mg Take 1 tablet by mouth in the morning. [facility] valsartan 320 mg tablet 2023-03 0 00:00: 00 Yes [id number] 320mg Take 1 tablet by mouth in the morning. [facility] citalopram 10 mg tablet 12-09 00:00: 00 02-04 00:00 :00 No [id number] 10mg Take 1 tablet by mouth in the morning. [facility] valsartan-h ydrochlorot hiazide (DIOVAN HCT) 320-25 mg per tablet 11-21 09:46: 30 11-21 00:00 :00 No 1 tablet Oral Once a day [facility] simvastatin 40 mg tablet 11-21 09:45: 26 11-21 00:00 :00 No 1 tablet in the evening Oral Once a day [facility] glucosamine sulfate (GLUCOSAMIN E ORAL) 11-21 09:45: 24 Yes 1{tbl} Take 1 tablet by mouth in the morning. [facility] atenoloL 25 mg tablet 11-21 09:45: 24 06-16 00:00 :00 No 1 tablet Oral Once a day [facility] SERTraline 25 mg tablet 11-21 00:00: 00 12-09 00:00 :00 No [id number] 25mg Take 1 tablet by mouth in the morning. [facility] METOPROLOL SUCCINATE XL 50 mg 24 hr tablet 19 00:00: 00 04-24 21:54 :04 No [id number] 50mg TAKE 1 TABLET BY MOUTH IN THE MORNING [facility] atorvastati n 40 mg tablet 08-06 00:00: 00 06-16 00:00 :00 No [id number] 40mg Take 1 tablet by mouth at bedtime. [facility] ezetimibe 10 mg tablet 08-06 00:00: 00 06-16 00:00 :00 No [id number] 10mg Take 1 tablet by mouth in the morning. [facility] valsartan 320 mg tablet 08-06 00:00: 00 11-21 00:00 :00 No [id number] 320mg Take 1 tablet by mouth in the morning. [facility] metoprolol succinate XL 50 mg 24 hr tablet 2-26 15:21: 39 05-07 00:00 :00 No 50mg Take 1 tablet by mouth in the morning. [facility] allopurinoL 300 mg tablet 2-26 15:16: 37 05-07 00:00 :00 No 300mg Take 300 mg by mouth in the morning. [facility] metoprolol succinate XL 50 mg 24 hr tablet 2- 00:00: 00 10-28 00:00 :00 No [id number] 50mg Take 1 tablet by mouth in the morning. [facility] valsartan 320 mg tablet 2 00:00: 00 08-06 00:00 :00 No [id number] 320mg Take 1 tablet by mouth in the morning. [facility] atorvastati n 80 mg tablet 0 8-17 00:00: 00 08-06 00:00 :00 No [id number] 80mg Take 1 tablet by mouth in the morning. [facility] ezetimibe 10 mg tablet 0 8-17 00:00: 00 08-06 00:00 :00 No [id number] 10mg Take 1 tablet by mouth in the morning. [facility] atorvastati n 40 mg tablet 0 8-14 00:00: 00 10-26 00:00 :00 No [id number] 40mg Take 1 tablet by mouth in the morning. [facility] valsartan 320 mg tablet 2022-0 8-11 00:00: 00 05-07 00:00 :00 No [id number] 320mg Take 1 tablet by mouth in the morning. [facility] valsartan 320 mg tablet 2022-0 6-26 00:00: 00 Yes [id number] 320mg Take 1 tablet by mouth in the morning. [facility] metoprolol succinate XL 50 mg 24 hr tablet 08-24 09:05: 31 Yes 50mg Take 1 tablet by mouth in the morning. [facility] metoprolol succinate XL 50 mg 24 hr tablet 2021-03 13:26: 15 Yes 50mg Take 50 mg by mouth in the morning. [facility] amLODIPine 2.5 mg tablet 2021-03 13:57: 46 01-24 00:00 :00 No 2.5mg Take 2.5 mg by mouth in the morning. [facility] simvastatin 40 mg tablet 2021-03 13:57: 11 01-24 00:00 :00 No 40mg Take 40 mg by mouth every morning. [facility] atorvastati n 40 mg tablet 2021-03 00:00: 00 10-23 00:00 :00 No [id number] 40mg Take 1 tablet by mouth in the morning. [facility] amLODIPine 5 mg tablet 2021-03 00:00: 00 08-24 00:00 :00 No [id number] 5mg Take 1 tablet by mouth in the morning. [facility] valsartan-h ydrochlorot hiazide 320-25 mg per tablet 2021-03 11:15: 29 01-02 00:00 :00 No 1{tbl} Take 1 tablet by mouth in the morning. [facility] allopurinoL 300 mg tablet 2021-03 10:51: 22 Yes 300mg Take 300 mg by mouth in the morning. [facility] amLODIPine 2.5 mg tablet 2021-03 10:51: 22 Yes 2.5mg Take 2.5 mg by mouth in the morning. [facility] metoprolol succinate XL 50 mg 24 hr tablet 2021-03 10:51: 22 Yes 50mg Take 50 mg by mouth in the morning. [facility] simvastatin 40 mg tablet 2021-0324 10:51: 22 Yes 40mg Take 40 mg by mouth every morning. [facility] valsartan 320 mg tablet 2021-03 024 00:00: 00 09-04 00:00 :00 No [id number] 320mg Take 1 tablet by mouth in the morning. [facility] cloNIDine (CATAPRES) tablet 0.1 mg 2021-03 0 16:15: 00 12-16 16:07 :00 No .1mg 0.1 mg, Oral, ONCE, 1 dose, On Sun12/16/21 at 1115, STAT [facility] NaCl 0.9% (NS) bolus infusion 1,000 mL 2021-03 0 16:15: 00 12-16 18:30 :00 No 1000mL at 999 mL/hr, 1,000 mL, IV Infusion, ONCE, 1 dose, On Sun12/16/21 at 1115, STAT [facility] acetaminoph en-codeine (TYLENOL-CO DEINE #3) 300-30 mg tablet 17 00:00: 00 05-07 00:00 :00 No 1{tbl} Take 1 tablet by mouth every 4 (four) hours as needed for Pain (scale 7-10). [facility] ibuprofen 800 mg tablet ibuprofen 800 mg tablet No ibuprofen 800 mg tablet [facility] Medical ID NOW COVID-19 Test Kit TEST DIRECTED TODAY ID NOW COVID-19 Test Kit TEST DIRECTED TODAY No ID NOW COVID-19 Test Kit TEST DIRECTED TODAY [facility] metoprolol succinate ER 100 mg tablet,exte nded release 24 hr TAKE 1 TABLET BY MOUTH EVERY DAY metoprolol succinate ER 100 mg tablet,exte nded release 24 hr TAKE 1 TABLET BY MOUTH EVERY DAY No metoprolol succinate ER 100 mg tablet,ext ended release 24 hr TAKE 1 TABLET BY MOUTH EVERY DAY [facility] metoprolol succinate ER 50 mg tablet,exte [...] day by oral route for 30 days. [facility] naproxen 500 mg tablet TAKE 1 TABLET BY MOUTH TWICE DAILY WITH MEALS NEEDED FOR ARTHRITIS naproxen 500 mg tablet TAKE 1 TABLET BY MOUTH TWICE DAILY WITH MEALS NEEDED FOR ARTHRITIS No naproxen 500 mg tablet TAKE 1 TABLET BY MOUTH TWICE DAILY WITH MEALS NEEDED FOR ARTHRITIS [facility] olmesartan 40 mg-hydrochl orothiazide 25 mg tablet [...] route in the morning for 90 days. [facility] Immunizations Ordered Immunization Name Filled Immunization Name Date Status Comments Source Influenza, adjuvanted, trivalent, PF (FLUAD) 2024-02-12 00:00:00 Completed [facility] Influenza Virus Vaccine,quad Im,preserve Free 65+ 2022-01-24 00:00:00 Completed [facility] Influenza Virus Vaccine,quad Im,preserve Free 65+ 2022-01-24 00:00:00 Completed [facility] Influenza Virus Vaccine,quad Im,preserve Free 65+ 2022-01-24 00:00:00 Completed [facility] Influenza Virus Vaccine,quad Im,preserve Free 65+ 2022-01-24 00:00:00 Completed [facility] Influenza Virus Vaccine,quad Im,preserve Free 65+ 2022-01-24 00:00:00 Completed [facility] Influenza Virus Vaccine,quad Im,preserve Free 65+ 2022-01-24 00:00:00 Completed [facility] Influenza Virus Vaccine,quad Im,preserve Free 65+ 2022-01-24 00:00:00 Completed [facility] Influenza Virus Vaccine,quad Im,preserve Free 65+ 2022-01-24 00:00:00 Completed [facility] Influenza Virus Vaccine,quad Im,preserve Free 65+ (FLUAD) 2022-01-24 00:00:00 Completed [facility] Influenza Virus Vaccine,quad Im,preserve Free 65+ (FLUAD) 2022-01-24 00:00:00 Completed [facility] SARS-COV-2 COVID-19 PFIZER VACCINE 2020-04-30 00:00:00 Completed SARS-COV-2 COVID-19 PFIZER VACCINE 2020-04-30 00:00:00 Completed SARS-COV-2 COVID-19 PFIZER VACCINE 2020-04-08 00:00:00 Completed SARS-COV-2 COVID-19 PFIZER VACCINE 2020-04-08 00:00:00 Completed Influenza Virus Vaccine,quad Im,preserve Free 65+ (FLUAD) Unknown Completed [facility] Influenza Virus Vaccine,quad Im,preserve Free 65+ (FLUAD) Unknown Completed [facility] Influenza Virus Vaccine,quad Im,preserve Free 65+ (FLUAD) Unknown Completed [facility] Influenza Virus Vaccine,quad Im,preserve Free 65+ (FLUAD) Unknown Completed [facility] Influenza Virus Vaccine,quad Im,preserve Free 65+ (FLUAD) Unknown Completed [facility] Influenza Virus Vaccine,quad Im,preserve Free 65+ (FLUAD) Unknown Completed [facility] Influenza Virus Vaccine,quad Im,preserve Free 65+ (FLUAD) Unknown Completed [facility] Influenza Virus Vaccine,quad Im,preserve Free 65+ (FLUAD) Unknown Completed [facility] Influenza Virus Vaccine,quad Im,preserve Free 65+ (FLUAD) Unknown Completed [facility] SARS-COV-2 COVID-19 PFIZER VACCINE Unknown Completed [facility] Influenza Virus Vaccine,quad Im,preserve Free 65+ (FLUAD) Unknown Completed [facility] SARS-COV-2 COVID-19 PFIZER VACCINE Unknown Completed [facility] Influenza Virus Vaccine,quad Im,preserve Free 65+ (FLUAD) Unknown Completed [facility] SARS-COV-2 COVID-19 PFIZER VACCINE Unknown Completed [facility] Influenza Virus Vaccine,quad Im,preserve Free 65+ (FLUAD) Unknown Completed [facility] SARS-COV-2 COVID-19 PFIZER VACCINE Unknown Completed [facility] Vital Signs Vital Name Observation Time Observation Value Comments S ource Systolic blood pressure 2024-06-16 15:29:00 194 mm[Hg] [facility] Diastolic blood pressure 2024-06-16 15:29:00 97 mm[Hg] [facility] Heart rate 2024-06-16 14:45:00 58 /min [facility] Body temperature 2024-06-16 14:45:00 36.5 Ammy [facility] Body height 2024-06-16 14:45:00 175.3 cm [facility] Body weight 2024-06-16 14:45:00 71.668 kg [facility] BMI 2024-06-16 14:45:00 23.33 kg/m2 [facility] Oxygen saturation in Arterial blood by Pulse oximetry 2024-06-16 14:45:00 100 /min [facility] Systolic blood pressure 2024-02-12 14:09:00 188 mm[Hg] [facility] Diastolic blood pressure 2024-02-12 14:09:00 82 mm[Hg] [facility] Heart rate 2024-02-12 14:00:00 74 /min [facility] Respiratory rate 2024-02-12 14:00:00 18 /min [facility] Body height 2024-02-12 14:00:00 175.3 cm [facility] Body weight 2024-02-12 14:00:00 67.994 kg [facility] BMI 2024-02-12 14:00:00 22.14 kg/m2 [facility] Oxygen saturation in Arterial blood by Pulse oximetry 2024-02-12 14:00:00 98 /min [facility] Systolic blood pressure 2023-11-22 14:43:00 154 mm[Hg] [facility] Diastolic blood pressure 2023-11-22 14:43:00 73 mm[Hg] [facility] Heart rate 2023-11-22 14:29:00 60 /min [facility] Respiratory rate 2023-11-22 14:29:00 18 /min [facility] Body height 2023-11-22 14:29:00 175.3 cm [facility] Body weight 2023-11-22 14:29:00 69.446 kg [facility] BMI 2023-11-22 14:29:00 22.61 kg/m2 [facility] Oxygen saturation in Arterial blood by Pulse oximetry 2023-11-22 14:29:00 97 /min [facility] Systolic blood pressure 2023-08-07 18:41:00 138 mm[Hg] [facility] Diastolic blood pressure 2023-08-07 18:41:00 70 mm[Hg] [facility] Heart rate 2023-08-07 18:40:00 71 /min [facility] Body temperature 2023-08-07 18:40:00 36.72 Ammy [facility] Respiratory rate 2023-08-07 18:40:00 18 /min [facility] Body height 2023-08-07 18:40:00 172.7 cm [facility] Body weight 2023-08-07 18:40:00 70.308 kg [facility] BMI 2023-08-07 18:40:00 23.57 kg/m2 [facility] Oxygen saturation in Arterial blood by Pulse oximetry 2023-08-07 18:40:00 98 /min [facility] Systolic blood pressure 2023-05-07 20:58:00 138 mm[Hg] [facility] Diastolic blood pressure 2023-05-07 20:58:00 71 mm[Hg] [facility] Heart rate 2023-05-07 20:58:00 69 /min [facility] Body temperature 2023-05-07 20:58:00 36.83 Ammy [facility] Respiratory rate 2023-05-07 20:58:00 18 /min [facility] Body height 2023-05-07 20:58:00 175.3 cm [facility] Body weight 2023-05-07 20:58:00 71.532 kg [facility] BMI 2023-05-07 20:58:00 23.29 kg/m2 [facility] Oxygen saturation in Arterial blood by Pulse oximetry 2023-05-07 20:58:00 98 /min [facility] Systolic blood pressure 2022-08-24 14:09:00 140 mm[Hg] [facility] Diastolic blood pressure 2022-08-24 14:09:00 85 mm[Hg] [facility] Heart rate 2022-08-24 14:09:00 76 /min [facility] Oxygen saturation in Arterial blood by Pulse oximetry 2022-08-24 14:09:00 99 /min [facility] Body temperature 2022-08-24 14:07:00 36.5 Ammy [facility] Respiratory rate 2022-08-24 14:07:00 17 /min [facility] Body height 2022-08-24 14:07:00 175.3 cm [facility] Body weight 2022-08-24 14:07:00 70.806 kg [facility] BMI 2022-08-24 14:07:00 23.05 kg/m2 [facility] Systolic blood pressure 2022-02-23 19:12:00 137 mm[Hg] [facility] Diastolic blood pressure 2022-02-23 19:12:00 75 mm[Hg] [facility] Heart rate 2022-02-23 19:12:00 76 /min [facility] Body temperature 2022-02-23 19:12:00 36.94 Ammy [facility] Respiratory rate 2022-02-23 19:12:00 16 /min [facility] Body weight 2022-02-23 19:12:00 73.086 kg [facility] BMI 2022-02-23 19:12:00 23.79 kg/m2 [facility] Oxygen saturation in Arterial blood by Pulse oximetry 2022-02-23 19:12:00 98 /min [facility] Systolic blood pressure 2022-01-24 19:44:00 171 mm[Hg] taken w pt's bp machine [facility] Diastolic blood pressure 2022-01-24 19:44:00 90 mm[Hg] taken w pt's bp machine [facility] Heart rate 2022-01-24 19:44:00 78 /min [facility] Body temperature 2022-01-24 19:43:00 37.17 Ammy [facility] Respiratory rate 2022-01-24 19:43:00 17 /min [facility] Body weight 2022-01-24 19:43:00 71.487 kg [facility] BMI 2022-01-24 19:43:00 23.27 kg/m2 [facility] Oxygen saturation in Arterial blood by Pulse oximetry 2022-01-24 19:43:00 98 /min [facility] Systolic blood pressure 2022-01-02 15:57:00 156 mm[Hg] [facility] Diastolic blood pressure 2022-01-02 15:57:00 63 mm[Hg] [facility] Heart rate 2022-01-02 15:57:00 47 /min [facility] Respiratory rate 2022-01-02 15:57:00 18 /min [facility] Oxygen saturation in Arterial blood by Pulse oximetry 2022-01-02 15:57:00 98 /min [facility] Body temperature 2022-01-02 15:54:00 36.39 Ammy [facility] Body height 2022-01-02 15:54:00 175.3 cm [facility] Body weight 2022-01-02 15:54:00 70.943 kg [facility] [place] BMI 2022-01-02 15:54:00 23.10 kg/m2 [facility] Systolic blood pressure 2021-12-16 19:00:00 139 mm[Hg] [facility] Diastolic blood pressure 2021-12-16 19:00:00 87 mm[Hg] [facility] [place] Heart rate 2021-12-16 19:00:00 65 /min [facility] [place] Respiratory rate 2021-12-16 19:00:00 15 /min [facility] [place] Oxygen saturation in Arterial blood by Pulse oximetry 2021-12-16 19:00:00 95 /min [facility] Body temperature 2021-12-16 15:53:00 36.44 Ammy [facility] [place] Body height 2021-12-16 15:53:00 175.3 cm [facility] [place] Body weight 2021-12-16 15:53:00 71.215 kg [facility] [place] BMI 2021-12-16 15:53:00 23.18 kg/m2 [facility] [place] BP Diastolic 2021-08-16 00:00:00 76 mm[Hg] [facility] Height 2021-08-16 00:00:00 68 [in_i] [facility] BMI (Body Mass Index) 2021-08-16 00:00:00 24.5 kg/m2 [facility] BP Systolic 2021-08-16 00:00:00 176 mm[Hg] [facility] Body Weight 2021-08-16 00:00:00 2576 [oz_av] [facility] Procedures Procedure Date / Time Performed Performing Clinician Source FLU VACC(),65+YR,0.5 ML,IM,ADJUVANTED,TIV(FLUAD) 2024-02-12 15:00:32 Doctor Unassigned, [place] [facility] [place] CT HEAD WO CONTRAST 2023-12-04 14:18:10 Eri Obrien [facility] ASSIGNMENT OF BENEFITS 2023-05-07 20:43:24 Docto r Unassigned, [place] [facility] PATIENT FINANCIAL POLICY 2022-08-24 13:59:49 Doctor Unassigned, [place] [facility] [place] FLU VACC(),65+YR,0.5 ML,IM,ADJUVANTED,QUAD(FLUAD ) 2022-01-24 19:51:19 Sandoval Umana [facility] CONSENT/REFUSAL FOR DIAGNOSIS AND TREATMENT 2022-01-02 15:30:45 Doctor Unassigned, [place] [facility] URINALYSIS 2021-12-16 17:21:00 Halle Valle [facility] XR CHEST 1 VW 2021-12-16 16:12:12 Valle [facility] TROPONIN I 2021-12-16 16:03:00 [facility] COMP. METABOLIC PANEL (60159) 2021-12-16 16:03:00 Halle Valle [facility] CBC WITH DIFF 2021-12-16 16:03:00 Singer [facility] CONSENT/REFUSAL FOR DIAGNOSIS AND TREATMENT 2021-12-16 15:46:21 Doctor Unassigned, [place] [facility] electrocardiogram 2021-08-16 00:00:00 Nina via Medical Carotid [...] Source 2024-10-16 00:00:00 2024-10-17 15:47:34 [facility] 1.2.840.114 350.1.13.10 4.2.7.2.686 [id number] 044 [id number] [facility] 2024-08-22 00:00:00 2024-08-25 16:52:09 Telephone Micah [facility] [place]?[facility] 1.2.840.114 350.1.13.10 4.2.7.2.686 [id number] 044 [id number] [facility] 2024-07-24 00:00:00 2024-07-25 12:59:29 Refill Micah Muna [facility] [place]?[facility] 1.2.840.114 350.1.13.10 4.2.7.2.686 [id number] 044 [id number] [facility] 2024-06-20 00:00:00 2024-06-20 14:50:47 Telephone Micah [facility] [place]?[facility] 1.2.840.114 350.1.13.10 4.2.7.2.686 [id number] 044 [id number] [facility] 2024-06-16 10:45:00 2024-06-16 11:00:00 Manufacturing Engineering Manager Visit Lab, Muna Peralta Ang - Db [facility] [place]?[facility] 1.2840.114 350.1.13.10 4.2.7.2.686 [id number] [facility] 2024-06-16 10:45:00 2024-06-16 10:45:00 Outpatient R MUNA OBRIEN [facility] [id number] [facility] 2024-06-16 09:40:00 2024-06-16 10:37:11 Office Visit Muna Obrien [facility] [place]?BI[facility]CA [facility] 1.2840.114 350.1.13.10 4.2.7.2.686 [id number] 044 [id number] [facility] 2023-11-19 00:00:00 2024-04-26 07:00:34 Orders Only Lavonne Turpin Perla [facility] [place]?[facility] 1.2840.114 350.1.13.10 4.2.7.2.686 [id number] 044 [id number] [facility] 2024-04-19 00:00:00 2024-04-24 15:54:06 Donna Spears [facility] 1.2840.114 350.1.13.10 4.2.7.2.686 [id number] 044 [id number] [facility] 2024-02-14 00:00:00 2024-02-14 10:26:37 Letter (Out) [facility] ([place] 1.2840.114 350.1.13.10 4.2.7.2.686 [id number] [facility] 2024-02-12 09:40:00 2024-02-12 10:00:00 Imm/Inj Visit Nurse, Muna Johnson Nurse, Segun Ferraro [facility] [place]?[facility] 1.2840.114 350.1.13.10 4.2.7.2.686 [id number] 044 [id number] [facility] 2024-02-12 09:40:00 2024-02-12 09:40:00 Outpatient R MICAH MUNA KLERigo [facility] [id number] [facility] 2024-02-12 08:20:00 2024-02-12 08:40:05 [facility] 1.2.840.114 350.1.13.10 4.2.7.2.686 [id number] [facility] 2024-02-05 00:00:00 2024-02-05 13:03:28 Refill Micah [facility] [place]?[facility] 1.2.840.114 350.1.13.10 4.2.7.2.686 [id number] 044 [id number] [facility] 2024-01-11 00:00:00 2024-01-11 11:48:36 Letter (Out) [facility] ([place]) 1.2.840.114 350.1.13.10 4.2.7.2.686 [id number] [id number] [facility] 2024-01-09 00:00:00 2024-01-09 11:59:10 Telephone Kellyrigo [facility] 1.2.840.114 350.1.13.10 4.2.7.2.686 [id number] [id number] [facility] 2023-12-07 00:00:00 2023-12-10 13:20:39 Telephone Micah [facility] [place]?[facility] 1.2.840.114 350.1.13.10 4.2.7.2.686 [id number] [id number] [facility] 2023-12-04 08:57:36 2023-12-04 23:59:00 Outpatient R [facility] [id number] [facility] 2023-12-04 08:57:36 2023-12-04 23:59:00 Hospital Encounter Muna Obrien [facility] 1.2840.114 350.1.13.10 4.2.7.2.686 [id number] [facility] 2023-11-23 00:00:00 2023-11-23 10:35:55 [facility] 1.2840.114 350.1.13.10 4.2.7.2.686 [id number] 044 [id number] [facility] 2023-11-22 10:45:00 2023-11-22 10:45:00 Manufacturing Engineering Manager Visit Lab, Ang - Muna Hayes Lab, Ang [facility] 1.2840.114 350.1.13.10 4.2.7.2.686 [id number] [facility] 2023-11-22 09:40:00 2023-11-22 10:31:14 Outpatient R MUNA OBRIEN [facility] [id number] [facility] 2023-11-22 09:40:00 2023-11-22 10:31:14 Office Visit [facility] 1.2840.114 350.1.13.10 4.2.7.2.686 [id number] 044 [id number] [facility] 2023-10-28 00:00:00 2023-10-29 14:41:26 Refill Donna Baker [facility] 1.2840.114 350.1.13.10 4.2.7.2.686 [id number] 044 [id number] [facility] 2023-09-20 09:00:00 2023-09-20 09:00:00 Outpatient R [facility] [id number] [facility] 2023-09-17 00:00:00 2023-09-17 10:25:43 Letter (Out) [facility] 1.2.840.114 350.1.13.10 4.2.7.2.686 [id number] [facility] 2023-08-29 00:00:00 2023-08-30 11:10:25 Telephone Micah [facility] 1.2.840.114 350.1.13.10 4.2.7.2.686 [id number] [id number] [facility] 2023-08-07 13:40:00 2023-08-07 14:08:00 Office Visit Micah [facility] 1.2.840.114 350.1.13.10 4.2.7.2.686 [id number] [facility] 2023-08-07 13:40:00 2023-08-07 14:08:00 Outpatient R MUNA OBRIEN [facility] [id number] [facility] 2023-05-15 00:00:00 2023-05-15 00:00:00 Telephone Donna Baker [facility] 1.2.840.114 350.1.13.10 4.2.7.2.686 [id number] [facility] 2023-05-14 10:00:00 2023-05-14 11:06:14 Outpatient R DONNA [facility] [id number] [facility] 2023-05-14 10:00:00 2023-05-14 10:15:00 Manufacturing Engineering Manager Visit Lab, Ang - Db [place], [facility] [place]?[facility] 1.840.114 350.1.13.10 4.2.7.2.686 [id number] [facility] 2023-05-07 15:00:00 2023-05-07 15:23:22 Outpatient R DONNA [facility] [id number] [facility] 2023-05-07 15:00:00 2023-05-07 15:23:22 Office Visit Donna Baker [facility] [place]?[facility] 1.84.114 350.1.13.10 4.2.7.2.686 [id number] [facility] 2023-05-07 00:00:00 2023-05-07 00:00:00 Orders Only Doctor Unassigned, [place] [facility] 1..114 350.1.13.10 4.2.7.2.686 [id number] [facility] 2022-10-26 00:00:00 2022-10-26 00:00:00 [facility]phone [facility] 1.840.114 350.1.13.10 4.2.7.2.686 [id number] [facility] 2022-10-24 08:15:00 2022-10-24 08:35:01 [facility] [id number] [facility] 2022-10-24 08:15:00 2022-10-24 08:30:00 Manufacturing Engineering Manager Visit 2, Adc Lab Dong [facility] BUILDING 1.840.114 350.1.13.10 4.2.7.2.686 [id number] [facility] 2022-10-20 00:00:00 2022-10-20 00:00:00 [facility] 1.2.840.114 350.1.13.10 4.2.7.2.686 [id number] 059 [id number] [facility] 2022-09-04 00:00:00 2022-09-04 00:00:00 [facility] 1.2.840.114 350.1.13.10 4.2.7.2.686 [id number] [facility] 2022-08-24 09:20:00 2022-08-24 09:28:55 [facility] 1.2.840.114 350.1.13.10 4.2.7.2.686 [id number] [facility] 2022-08-24 09:20:00 2022-08-24 09:20:00 Outpatient R DONG [facility] [id number] [facility] 2022-08-24 00:00:00 2022-08-24 00:00:00 Orders Only Doctor Unassigned, [place] [facility] 1.2.840.114 350.1.13.10 4.2.7.2.686 [id number] [facility] 2022-02-23 13:00:00 2022-02-23 13:35:08 Out[facility] [id number] [facility] 2022-02-23 13:00:00 2022-02-23 13:35:08 Office Visit Dong [facility] 1.2.840.114 350.1.13.10 4.2.7.2.686 [id number] [facility] 2022-01-24 13:40:00 2022-01-24 14:02:58 [facility] 1.840.114 350.1.13.10 4.2.7.2.686 [id number] [facility] 2022-01-24 13:40:00 2022-01-24 14:02:58 Outpatient [facility] [id number] [facility] 2022-01-19 00:00:00 2022-01-19 00:00:00 Telephone Dong [facility] PROFESSIO NAL BUILDING 1.840.114 350.1.13.10 4.2.7.2.686 [id number] [facility] 2022-01-16 08:53:46 2022-01-16 23:59:00 Outpatient [facility] [id number] [facility] 2022-01-04 00:00:00 2022-01-04 00:00:00 [facility]phone [facility] 1.840.114 350.1.13.10 4.2.7.2.686 [id number] [facility] 2022-01-02 10:40:00 2022-01-02 11:20:56 Outpatient R [facility] [id number] [facility] 2022-01-02 10:40:00 2022-01-02 11:20:56 Office Visit Dong [facility] PROFESSIO NAL [facility]ILDING 1.840.114 350.1.13.10 4.2.7.2.686 [id number] [facility] 2022-01-02 00:00:00 2022-01-02 00:00:00 Orders Only Doctor Unassigned, [place] [facility] 1.284.114 350.1.13.10 4.2.7.2.686 [id number] [facility] 2021-12-29 10:00:00 2021-12-29 10:15:00 Manufacturing Engineering Manager Visit 2, Adc Lab [facility] 1.840.114 350.1.13.10 4.2.7.2.686 [id number] [facility] 2021-12-29 10:00:00 2021-12-29 10:00:00 Outpatient PERLITA [facility] [id number] [facility] 2021-12-16 10:55:00 2021-12-16 14:18:00 Emergency X HALLE [facility] ERT [id number] [facility] 2021-12-16 10:55:00 2021-12-16 14:18:00 Emergency Halle Valle [facility] 1.840.114 350.1.13.10 4.2.7.2.686 [id number] [facility] 2021-10-23 19:36:00 2021-10-23 19:36:00 Emergency X LEEANN ROWAN [facility] ERT [id number] [facility] 2021-08-16 00:00:00 2021-08-16 00:00:00 Wili De La Garza, EMT I/99: [address] [place] [address] , Ph. [facility] GC_HGMDA_Go nzalez [facility] Office [id number] [facility] 2021-08-16 00:00:00 2021-08-16 00:00:00 Outpatient Tico De La Garzaer [facility] [id number] 2020-01-29 00:00:00 2020-01-29 00:00:00 Telephone Pcp, Patient Does Not Have A [facility] 1.840.114 350.1.13.10 4.2.7.2.686 [id number] [facility] 2020-01-24 16:30:13 2020-01-24 16:50:13 Laboratory Only Lab, Adc Fam Pob Daija Rodriguez [facility] Office [address] 1..840.114 350.1.13.10 4.2.7.2.686 [id number] [facility] 2020-01-24 16:20:00 2020-01-24 16:48:36 Outpatient R DAIJA R[facility]O [facility] [id number] [facility] Results Test Description Test Time Test [...] The calvariumand central skull base are unremarkable. [facility]01[facility]2021-12-16 16:33:30* Test Item Value Reference Range Interpretation Comme nts NA (test code = 8931124680) 138 mmol/L 135-145 K (test code = 1968866050) 4.7 mmol/L 3.5-5 CL (test code = 6655534711) 98 mmol/L 98-108 CO2 TOTAL (test code = 4315517934) 26 mmol/L 23-31 AGAP (test code = 2089498562) 2-16 BUN (test code = 6410276525) 24 mg/dL 7-23 H GLUCOSE (test code = 7678363512) 110 mg/dL 70-110 CREATININE (test code = 2753318175) 1.37 mg/dL 0.6-1.25 H TOTAL BILI (test code = 6502550954) 0.8 mg/dL 0.1-1.1 CALCIUM (test code = 9373116544) 10.3 mg/dL 8.6-10.6 T PROTEIN (test code = 8228458230) 7.4 g/dL 6.3-8.2 ALBUMIN (test code = 6199929602) 4.8 g/dL 3.5-5 ALK PHOS (test code = 0362638184) 58 U/L 34-122 ALTv (test code = 1742-6) 21 U/L 5-50 AST(SGOT) (test code = 0863089283) 24 U/L 13-40 eGFR (test code = 1678817640) mL/min/1.73m2 SINAN (test code = SINAN) Association [...] imaging tests). Lab Interpretation (test code = 40542-0) Abnormal [facility] WITH [id number] 16:16:08* Test Item Value Reference Range Interpretation [...] 34.8 g/dL 31.2-35 RDW-SD (test code = 26201-2) 38.2 fL 38.5-51.6 L RDW-CV (test code = 788-0) 12.5 % 12.1-15.4 PLT (test code = 777-3) See_Comment [Automated messa ge] The system which generated this result transmitted reference range: 150 - 328 10*3/?L. The reference range was not used to interpret this result as normal/abnormal. MPV (test code = 98916-4) 9.9 fL 9.8-13 NRBC/100 WBC (test code = 8209080362) See_Comment [Automated Homeloc ssage] The system which generated this result transmitted reference range: 0.0 - 10.0 /100 WBCs. The reference range was not used to interpret this result as normal/abnormal. NRBC x10^3 (test code = 1170761412) See_Comment [Automated messa ge] The system which generated this result transmitted reference range: 10*3/?L. The reference range was not used to interpret this result as normal/abnormal. GRAN MAT (NEUT) % (test code = 770-8) 56.8 % IMM GRAN % (test code = 5842470259) 0.40 % LYMPH % (test code = 736-9) 31.3 % MONO % (test code = 5905-5) 8.8 % EOS % (test code = 713-8) 1.9 % BASO % (test code = 706-2) 0.8 % GRAN MAT x10^3(ANC) (test code = 8529906368) 4.13 10*3/uL 1.99-6.95 IMM GRAN x10^3 (test code = 9296533930) 0.03 10*3/uL 0-0.06 LYMPH x10^3 (test code = 731-0) 2.28 10*3/uL 1.09-3.23 MONO x10^3 (test code = 742-7) 0.64 10*3/uL 0.36-1.02 EOS x10^3 (test code = 711-2) 0.14 10*3/uL 0.06-0.53 BASO x10^3 (test code = 704-7) 0.06 10*3/uL 0.01-0.09 Lab Interpretation (test code = 56883-9) Abnormal [facility] Notes Date/Time Note Provider Source 2024-10-17 15:46:37 Last Refilled: METOPROLOL SUCCINATE XL 50 mg 24 hr tablet 90 tablet 1 04/24/2024 -- No Sig: TAKE 1 TABLET BY MOUTH IN THE MORNING Sent to pharmacy as: metoprolol succinate ER 50 mg tablet,extended release 24 hr (TOPROL XL) Class: eRX Route: Oral Order: [id number] Date/Time Signed: 04/24/2024 15:54 E-Prescribing Status: Receipt confirmed by pharmacy (04/24/2024 3:54 PM REVENUE ENFORCEMENT COLLECTION AGENT) Recent Visits Date Type Provider Dept 06/16/24 Office Visit Muna Obrien MD Ang-Db [facility] 02/12/24 Office Visit Muna Obrien MD Ang[facility]Db [facility] 11/22/23 Office Visit Muna [...] and meeting all other requirements Darlyn Talley [facility] 2024-08-25 16:52:03 Done [facility] 2024-08-23 13:56:28 Please review, complete, and sign if appropriate. [facility] 2024-08-22 16:15:27 Tonie Love is a 79 year old male Patient is requesting a referral to: Dept: Ophthalmology Reason for referral: macular degeneration f/u External referral: Name of provider / location patient requesting: [facility] Phone number: [phone] Appt already scheduled?: y If yes, date of appt.: 08.26.24 Micaela Lockett [facility] 2024-06-20 14:43:06 Notified patient of test [...] 06/18/2024 10:12 PM CDT Echo Calvo MA [facility] 2024-06-20 14:15:16 Tonie Love is a 79 year old male The patient is requesting a call with his test results. He said he got a text that they were on MyChart but he does not use MyChart. Cristina Cotton [facility] 2024-06-16 10:45:00 Images from the original note were not included. Venipuncture collection performed by clean technique on the left anticubitus. Total of 1 attempts were made. Slight pressure and a bandage/dressing were applied to the site(s). The patient experienced no complications. The following specimens were processed according to instructions and sent to [facility] laboratories per lab order on 06/16/2024 : LT BLUE SST 1 RED LAV 2 PPT DK GREEN (LiHep) DK GREEN (SodH) MARINA DK BLUE (K2) DK BLUE (S) ACD Blood Culture NIPT/NTD Patient has been identified by and name and was provided with cup, antiseptic towelette, and clean catch instructions. 1 urine specimen(s) sent. Unpreserved 1 Urine Culture Aptima tube Other urine [facility] 2024-04-24 09:43:08 Patient denied use of Atenolol and only taking Metoprolol and Valsartan at this time. NUE ENFORCEMENT COLLECTION AGENT [facility] 2024-04-22 17:24:30 Is he taking atenolol as well? Please clarify which betablocker he is taking. Dr. Micah Phillisp [facility] 2024-04-21 14:54:23 Images from the original note were not included. Notes: 10/29/23 Last Refilled: [facility][id number] - [place], [place] - [address] AT [facility] & Recent Visits Date Type Provider [...] KRZYSZTOF Hinkle Last refill: 01/23/2024 Rx #: [id number]|1|0|1 Cardiovascular: Beta Blockers Kbwnsf5504/19/2024 08:26 AM Protocol Details Valid encounter within last 12 months Heart rate within normal limits and completed in the last 12 months To be filled at: [facility] #[id number] [facility], [place] - [address] AT [facility] [address] NUE ENFORCEMENT COLLECTION AGENT Ashley Peralta MA [facility] 2024-02-05 13:02:25 Images from the original [...] Obrien MD Last refill: 12/10/2023 Rx #: [id number]|1|0|1 Psychiatry: Antidepressants Ymnjlh6402/05/2024 08:21 AM Protocol Details Manual Review: Verify no changes in dose in the last 3 months Valid encounter within last 12 months To be filled at: [facility] #[id number] [place] [address] [address] [facility] [address] Recent Visits [...] meeting all other requirements Y Calvo MA [facility] 2024-01-09 11:53:47 Referral placed for [facility]. And faxed. P:[phone] F:[phone] T [facility] 2024-01-09 11:06:20 Tonie Love is a 78 year old male is requesting assistance with finding cinema or theatre manager in [place] so that he may have an eye exam for glasses Please advise [phone] (home) T [facility] 2023-12-10 13:20:14 Patient notified of all and verbalized understanding. No further needs were voiced. [facility] 2023-12-10 12:35:53 That is a rare side effect. Stop sertraline. We can try a different medicine called citalopram. Let us know if he has any side effects. Best, Dr. Obrien T [facility] 2023-12-07 11:10:45 Please review and advise. MANUEL 11/22/23 NOV 02/12/24 [facility] hospital 2023-12-07 10:42:05 Tonie Love is a 78 year old male Pt saw the doctor on 11/21 and was prescribed sertraline 25 mg. He said it took it for 7 days and had "bad diarrhea". He stopped it on 11/30 and took it again this morning and within 2 hours he had diarrhea again. Please call [phone]. T [facility] 2023-11-23 10:34:54 Spoke with patient and informed him that the labs had not been resulted on as of yet. He would receive a call when they had. He voiced understanding. Mila Alfonso RN [facility] 2023-11-23 09:48:04 Tonie Love is a 78 year old male would like to go over his recent lab results with a nurse. Please advise. [facility] 2023-11-22 10:45:00 Images from the original note were not included. Venipuncture collection performed by clean technique on the left anticubitus. Total of 1 attempts were made. Slight pressure and a bandage/dressing were applied to the site(s). The patient experienced no complications. The following specimens were processed according to instructions and sent to [facility] laboratories per lab order on 11/22/2023 : LT BLUE SST 2 RED LAV 1 PPT DK GREEN (LiHep) DK GREEN (SodH) MARINA DK BLUE (K2) DK BLUE (S) ACD Blood Culture NIPT/NTD Patient has been identified by and name and was provided with cup, antiseptic towelette, and clean catch instructions. 1 urine specimen(s) sent. Unpreserved 1 Urine Culture Aptima tube Other urine [facility] 2023-10-29 14:40:21 Last Refilled: Disp Refills Start End SACHI metoprolol succinate XL 50 mg 24 hr tablet 90 tablet 1 05/07/2023 -- No Sig: Take 1 tablet by mouth in the morning. Sent to pharmacy as: metoprolol succinate ER 50 mg tablet,extended release 24 hr (TOPROL XL) Class: eRX Route: Oral Order: [id number] Date/Time Signed: 05/07/2023 15:21 E-Prescribing Status: Receipt confirmed by pharmacy (05/07/2023 4:36 PM REVENUE ENFORCEMENT COLLECTION AGENT) Notes: Recent Visits Date Type Provider Dept [...] authorizing provider and meeting all other requirements Manufacturing Engineering Manager Visit on 05/14/2023 Component Date Value NA [...] x10 3 05/14/2023 0.08 Mila Alfonso RN [facility] 2023-08-30 11:09:54 Referral placed per provider approval . [facility] 2023-08-29 21:57:36 I approve a referral. Dr Esvin gibbons in [facility] is good. Best, Dr. Obrien T [facility] 2023-08-29 10:25:58 Copied from [facility] #[id number]. Topic: Clinical - Referral >> Aug 29, 2023 10:23 AM Patient Braider Operator wrote: Tonie Love is a 78 year old male Patient requesting a referral to a Atmospheric Drier Tender for a skin check asking if Dr. Obrien can recommend someone to him. Please advise and call patient with an update. [phone] (home) T [facility] 2023-05-16 10:56:27 Patient has been notified of test results/ recommendations per Donna Baker Gave verbal understanding [facility] 2023-05-15 15:33:48 Copied from [facility] #[id number]. Topic: Clinical - Results >> May 15, 2023 3:32 PM Patient Braider Operator wrote: Patient called stating that he had a missed call for his results and would like a call back on those results Please advise [facility] 2023-05-14 10:00:00 Images from the original note were not included. Venipuncture collection performed by clean technique on the left anticubitus. Total of 1 attempts were made. Slight pressure and a bandage/dressing were applied to the site(s). The patient experienced no complications. The following specimens were processed according to instructions and sent to [facility] laboratories per lab order on 05/14/2023 : LT BLUE SST 1 RED LAV 1 PPT DK GREEN (LiHep) DK GREEN (SodH) MARINA DK BLUE (K2) DK BLUE (S) ACD Blood Culture NIPT/NTD [facility] 2022-10-26 08:53:48 Formatting of this n ote might be different from the original. Images from the original note were not included. Results shred with patient, verbalized understanding Sandoval Umana MD P Cardiology Nurse Labs are good for refills. Renal function has improved. Cholesterol is still suboptimal. Increase Lipitor to 80 mg daily and also add Zetia 10 mg daily. [facility] 2022-10-24 08:15:00 Formatting of this n ote is different from the original. Images from the original note were not included. Venipuncture collection performed by clean technique on the left anticubitus. Total of 1 attempts were made. Slight pressure and a bandage/dressing were applied to the site(s). The patient experienced no complications. The following specimens were processed according to instructions and sent to [facility] laboratories per lab order on 10/24/2022 : LT BLUE SST 1 RED LAV 1 PPT DK GREEN (LiHep) DK GREEN (SodH) MARINA DK BLUE (K2) DK BLUE (S) ACD Blood Culture NIPT/NTD [facility] 2022-10-23 08:58:15 Formatting of this n ote might be different from the original. Images from the original note were not included. Refill request received for atorvastatin. Patient due for labs per [facility] Cardiology Refill Guidelines. Orders were entered on 10.20.22 for lipid panel, CMP, CBC and Hepatic function. Discussed with patient that we can send 30 day supply for continuity of care but he will need to get labs for further refills. He verbalized understanding via teach back. Rx sent to: [id number] [place] [id number] [facility] [address] T Olamide Naranjo RN [facility] 2022-10-20 14:01:10 Addended by: TREVER VELIZ RN on: 10/20/2022 02:01 PM Modules accepted: Orders T [facility] 2022-10-20 13:52:42 Formatting of this n ote might be different from the original. Valsartan refill sent for 90 days no refills for continuity of care. Lab orders placed, LVM on VM to call clinic with concerns MANUEL 08/24/22 Labs 12/16/21 T [facility]
--- NOTE | 2024-12-16 10:45 | EDPHYS ---
Physician Documentation [facility] Name: Abraham Patel Age: 79 yrs Sex: Male : 1945 Arrival Date: 12/16/2024 Time: 10:27 Bed 16 Private MD: ED Physician Hortencia Lanza HPI: 12/16 12:08 This 79 yrs old Male presents to ER via Ambulatory with complaints of Wound Check. kb 12:08 Pt is an 79 year old male who presents to have wound evaluated. States he had sutures kb placed on 12/10 and he had some redness and warmth around the site today. States the redness has improved and warmth has resolved since he noticed it this morning. Pt is currently taking doxycycline. Historical: - Allergies: 10:38 PENICILLINS; me1 - PMHx: 10:38 Hypercholesterolemia; Hypertensive disorder; me1 - PSHx: 10:38 Appendectomy; Operative procedure on knee; Tonsillectomy; me1 - Immunization history:: Adult Immunizations up to date. - Infectious Disease History:: Denies. - Social history:: Smoking status: Patient denies any tobacco usage or history of. ROS: 12:07 Constitutional: As per HPI kb Exam: 12:07 Constitutional: This is a well developed, well nourished patient who is awake, alert, kb and in no acute distress. Head/Face: Normocephalic, atraumatic. ENT: Moist Mucous membranes Respiratory: Respirations even and unlabored. No increased work of breathing. Talking in full sentences MS/ Extremity: Pulses equal, no cyanosis. Neurovascular intact. Full, normal range of motion. Neuro: Awake and alert, GCS 15, oriented to person, place, time, and situation. 12:07 Skin: Wound recheck: Suture laceration closure: the wound is healing well, the edges are well approximated, no evidence of dehiscence, no drainage, no swelling, mild erythema, Vital Signs: 10:36 BP 179 / 90; Pulse 79; Resp 18; Temp 98.1; Pulse Ox 99% ; Weight 66.22 kg; Height 5 ft. me1 9 in. ; Pain 2/10; 10:36 Body Mass Index 21.56 (66.22 kg, 175.26 cm) me1 10:36 Pain Scale: Adult me1 MDM: 10:35 Medical Screening Exam initiated kb 12:07 Differential diagnosis: cellulitis, abscess, wound infection. Data reviewed: vital kb signs, nurses notes. Historians other than the Patient: Spouse/Significant Other: . Counseling: I had a detailed discussion with the patient and/or guardian regarding the historical points, exam findings, and any diagnostic results supporting the discharge/admit diagnosis, the need for outpatient follow up, a family practitioner, to return to the emergency department if symptoms worsen or persist or if there are any questions or concerns that arise at home. Administered Medications: No medications were administered Disposition Summary: 12/16/24 10:44 Discharge Ordered Notes: Location: Home kb Condition: Stable kb Diagnosis - Encounter for evaluation of wound kb Followup: kb - With: Emergency Department - When: As needed - Reason: Worsening of condition Followup: kb - With: Private Physician - When: 2 - 3 days - Reason: Recheck today's complaints, Continuance of care, Re-evaluation by your physician Discharge Instructions: - Discharge Summary Sheet kb - Laceration Care, Adult, [id number] kb - Wound Infection, [id number] kb Forms: - Medication Reconciliation Form kb - Antibiotic Education kb - Prescription Opioid Use kb - Patient Portal Instructions kb - Leadership Thank You Letter kb Signatures: Karen Wade FNP-C FNP-Myra Renner, RN RN me1
--- NOTE | 2024-12-16 10:45 | ER ---
Nurse's Notes [facility] Name: Abraham Patel Age: 79 yrs Sex: Male : 1945 Arrival Date: 12/16/2024 Time: 10:27 Bed 16 Private MD: Diagnosis: Encounter for evaluation of wound Presentation: 12/16 10:36 Chief complaint: Patient states: was here for laceration repair x2 on 12/10. On me1 doxycycline 100mg po bid. Area around incisioins are red and warm to touch. Denies fever. Coronavirus screen: Vaccine status: Patient reports receiving the 2nd dose of the covid vaccine. Ebola Screen: No symptoms or risks identified at this time. Initial Sepsis Screen: Does the patient meet any 2 criteria? No. Patient's initial sepsis screen is negative. Does the patient have a suspected source of infection? No. Patient's initial sepsis screen is negative. Risk Assessment: Do you want to hurt yourself or someone else? Patient reports no desire to harm self or others. 10:36 Method Of Arrival: Ambulatory [facility] 10:36 Acuity: [place] 4 [facility] 10:56 Onset of symptoms was December 16, 2024. cm10 Historical: - Allergies: 10:38 PENICILLINS; me1 - PMHx: 10:38 Hypercholesterolemia; Hypertensive disorder; me1 - PSHx: 10:38 Appendectomy; Operative procedure on knee; Tonsillectomy; me1 - Immunization history:: Adult Immunizations up to date. - Infectious Disease History:: Denies. - Social history:: Smoking status: Patient denies any tobacco usage or history of. Screenin:54 [facility] ED Fall Risk Assessment (Adult) History of falling in the last 3 months, cm10 including since admission No falls in past 3 months (0 pts) Confusion or Disorientation No (0 pts) Intoxicated or Sedated No (0 pts) Impaired Gait No (0 pts) Mobility Assist Device Used No (0 pt) Altered Elimination No (0 pt) Score/Fall Risk Level 0 - 2 = Low Risk Oriented to surroundings, Maintained a safe environment, Hourly rounding (assess needs \T\ fall precautionary measures) done. Abuse screen: Denies threats or abuse. Denies injuries from another. Nutritional screening: No deficits noted. Tuberculosis screening: No symptoms or risk factors identified. Assessment: 10:53 General: Appears in no apparent distress. comfortable, Behavior is calm, cooperative, cm10 appropriate for age. Pain: Complains of pain in left knee. Neuro: No deficits noted. Level of Consciousness is awake, alert, obeys commands, Oriented to person, place, time, situation, Appropriate for age. Respiratory: No deficits noted. Airway is patent Respiratory effort is even, unlabored, Respiratory pattern is regular, symmetrical. Derm: Laceration to left knee with sutures in place. Vital Signs: 10:36 BP 179 / 90; Pulse 79; Resp 18; Temp 98.1; Pulse Ox 99% ; Weight 66.22 kg; Height 5 ft. me1 9 in. ; Pain 2/10; 10:36 Body Mass Index 21.56 (66.22 kg, 175.26 cm) me1 10:36 Pain Scale: Adult fl1 ED Course: 10:29 Patient arrived in ED. mr 10:35 [facility]C [facility] kb 10:35 Hortencia Lanza MD is Attending Physician. kb 10:38 Triage completed. me1 10:38 Arm band placed on Patient placed in an exam room. me1 10:55 Patient has correct armband on for positive identification. Provided Education on: cm10 follow-up instructions. 10:55 No provider procedures requiring assistance completed. Patient did not have IV access cm10 during this emergency room visit. Wound care: to laceration located on left knee was dressed with Neosporin, non-adherent dressisng, Patient tolerated well. Administered Medications: No medications were administered Medication: 10:54 VIS not applicable for this client. cm10 Outcome: 10:44 Discharge ordered by . kb 10:56 Discharged to home ambulatory, with significant other, cm10 10:56 Condition: good 10:56 Discharge instructions given to patient, Instructed on discharge instructions, follow up and referral plans. wound care, Demonstrated understanding of instructions, follow-up care, wound care, 10:56 Patient left the ED. cm10 Signatures: Karen Wade FNP-C LABORATORY MECHANIC HELPER-[place]uel[place], Wild Reg Valerie Bustos, RN RN cm10 Myra Nicole RN RN me1
[2024-12-16 11:28] VITALS: BP 179/90; TEMP 98.1; O2SAT 99
== END 2024-12-16 10:56 | disposition home or self-care (01) ==
LOC: ER 10:27
DX: Z48.02 Encounter for removal of sutures (principal)
CPT/HCPCS: 99283